=== PATIENT | female | born 1990 | race Caucasian/White ===

== ENCOUNTER 2017-06-07 16:07 | Outpatient (CLI) | payer MEDICAID ==
[2017-06-07 12:48] LABS: BASOPHILS % (AUTO) 0.3 %; EOSINOPHILS # (AUTO) 0.1 10^3/uL (0.0-0.7); EOSINOPHILS % (AUTO) 0.9 %; HGB - HEMOGLOBIN 13.5 g/dL (12.0-16.0); LYMPHOCYTES # (AUTO) 2.7 10^3/uL (1.5-3.5); LYMPHOCYTES % (AUTO) 27.2 %; MEAN CORPUSCULAR HEMOGLOBIN 30.1 pg (27.0-31.0); MEAN CORPUSCULAR HGB CONC 34.7 g/dL (32.0-36.0); MEAN CORPUSCULAR VOLUME 86.8 fL (81.0-99.0); MEAN PLATELET VOLUME 9.1 fL (7.9-10.8); MONOCYTES # (AUTO) 0.6 10^3/uL (0.0-1.0); MONOCYTES % (AUTO) 5.9 %; NEUTROPHILS # (AUTO) 6.5 10^3/uL (1.5-6.6); NEUTROPHILS % (AUTO) 65.7 %; NUCLEATED RED BLOOD CELLS AUTO 0.1 /100WBC; RED CELL DISTRIBUTION WIDTH 12.4 % (12.0-15.0)
[2017-06-07 12:49] LABS: GLUCOSE,FASTING 143 mg/dL (70-100)
[2017-06-07 12:51] LABS: BILIRUBIN,URINE NEGATIVE (NEGATIVE)
[2017-06-07 12:52] LABS: UA w/ MICROSCOPIC CHARGE YES
[2017-06-07 12:54] LABS: WBC,URINE 0-3 /HPF (0-5)
[2017-06-07 13:13] LABS: HEMOGLOBIN A1C 0.46 g/dL
[2017-06-08 10:07] LABS: TEST RESULT REPORT
== END 2017-06-07 16:08 | disposition home or self-care (01) ==
LOC: LAB.WCP 16:07
PROVIDERS: ATTEND Obstetrics & Gynecology
DX: Z36.9 Encounter for antenatal screening, unspecified (principal)
CPT/HCPCS: 36415; 81001; 81003; 81599; 82947; 82950; 83036; 85025; 86592; 86762; 86850; 86900; 86901; 87340; 87389

== ENCOUNTER 2017-06-22 08:11 | Outpatient (CLI) | payer MEDICAID ==
[2017-06-22 09:00] LABS: GTT GLUCOSE,FASTING 95 mg/dL (70-100)
== END 2017-06-22 08:12 | disposition home or self-care (01) ==
LOC: LAB 08:11
PROVIDERS: ATTEND Obstetrics & Gynecology
DX: O99.810 Abnormal glucose complicating pregnancy (principal)
CPT/HCPCS: 36415; 82951

== ENCOUNTER 2017-08-07 19:25 | Inpatient (IN) | payer MEDICAID ==
[2017-08-07] MEDS ORDERED: HYDROmorphone 1 MG/ML SYRINGE IVP STA ×2 (19:39→22:07)
--- NOTE | 2017-08-07 19:41 | ED Physician Documentation ---
PD HPI ABD PAIN - Stated complaint Stated Complaint: STOMACH PAIN/19 WEEKS PREG - Chief complaint Chief Complaint: Abd Pain - History obtained from History obtained from: Patient, Family - History of Present Illness Timing - onset: Other ( with prior vaginal delivery and no problem with prior and no problem with this presents with sudden onset pelvic pain starting 2 hours ago radiating around both sides associated with no vaginal bleeding, discharge, or fluid loss.) Review of Systems Ten Systems: 10 systems reviewed and negative Constitutional: denies: Fever, Chills Ears: denies: Loss of hearing, Drainage/discharge Cardiac: denies: Chest pain / pressure, Palpitations Respiratory: denies: Dyspnea, Cough PD PAST MEDICAL HISTORY - Past Medical History Past Medical History: Yes Neuro: Headache/migraine - Past Surgical History Past Surgical History: No - Present Medications Home Medications: Ambulatory Orders Medication Instructions Recorded Confirmed Vit No.78/Iron/FA 1 tab PO DAILY 12/30/13 08/07/17 [Prenatabs FA Tablet] - Allergies Allergies/Adverse Reactions: Allergies Allergy/AdvReac Type Severity Reaction Status Date / Time azithromycin Allergy Rash Verified 08/07/17 19:31 divalproex sodium AdvReac Headache Verified 08/07/17 19:31 [From Depakote] sumatriptan [From Imitrex] AdvReac Hives Verified 08/07/17 19:31 sumatriptan succinate * AdvReac Hives Verified 08/07/17 19:31 [From Imitrex] - Social History Does the pt smoke?: No Smoking Status: Never smoker Does the pt drink ETOH?: No Does the pt have substance abuse?: No - Family History Family history: reports: Non contributory - Immunizations Immunizations are current?: Yes - POLST Patient has POLST: No PD ED PE NORMAL - Vitals Vital signs reviewed: Yes - General General: Alert and oriented X 3, Other (She appears to be in pain) - HEENT HEENT: PERRL, EOMI - Neck Neck: Supple, no meningeal sign, No bony TTP - Cardiac Cardiac: RRR, No murmur - Respiratory Respiratory: No respiratory distress, Clear bilaterally - Abdomen Abdomen: Other (Soft but diffusely and significantly tender especially in the low abdomen which does not lateralize. Bedside ultrasound shows single live intrauterine with normal motion,) - Back Back: No CVA TTP, No spinal TTP - Derm Derm: Normal color, Warm and dry - Extremities Extremities: No edema, No calf tenderness / cord - Neuro Neuro: Alert and oriented X 3, Normal speech - Psych Psych: Normal mood, Normal affect Results - Vitals Vitals: Vital Signs - 24 hr 08/07/17 08/07/17 19:29 20:51 Temperature 37.1 C Heart Rate 106 H 87 Respiratory 22 18 Rate Blood Pressure 124/85 H 134/67 H O2 Saturation 100 98 Oxygen O2 Source Room air - Labs Labs: Laboratory Tests 08/07/17 08/07/17 08/07/17 19:45 19:45 20:45 WBC 11.7 H RBC 4.29 Hgb 13.0 Hct 37.2 MCV 86.9 MCH 30.2 MCHC 34.8 RDW 12.5 Plt Count 286 MPV 8.8 Neut # 8.3 H Lymph # 2.7 [place] # 0.5 Eos # 0.1 Baso # 0.0 Absolute Nucleated RBC 0.00 Nucleated RBC % 0.0 Sodium 135 Potassium 3.3 L Chloride 100 L Carbon Dioxide 21 Anion Gap 14.0 H BUN 7 Creatinine 0.4 Estimated GFR (MDRD) 191 Glucose 96 Calcium 9.2 Total Bilirubin 0.2 AST 20 ALT 16 Alkaline Phosphatase 63 Total Protein 7.7 Albumin 3.7 Globulin 4.0 Albumin/Globulin Ratio 0.9 L Lipase 19 L Urine Color YELLOW Urine Clarity CLEAR Urine pH 6.0 Ur Specific [place] >=1.030 H Urine Protein NEGATIVE Urine Glucose (UA) NEGATIVE Urine Ketones >=80 H Urine Occult Blood TRACE-INTA Urine Nitrite NEGATIVE Urine Bilirubin NEGATIVE Urine Urobilinogen 1 (NORMAL) Ur Leukocyte Esterase SMALL H Urine RBC 0-5 Urine WBC 4-5 Ur Squamous Epith Cells MOD Squamous H Urine Bacteria Moderate H Ur Microscopic Review INDICATED Urine Culture Comments NOT INDICATED PD MEDICAL DECISION MAKING - ED course ED course: 26-year-old woman with sudden and severe pelvic pain With tenderness. After my initial evaluation I consulted the on-call OB, Dr. Castanon who will be in to see the patient and requests formal ultrasound and labs in the interim. On repeat examination after narcotic pain medication she was much less tender but the tenderness had localized to the right lower quadrant. Ultrasound results as shown, concern for appendicitis and Dr. Castanon's plan was to place her in observation on antibiotics for MRI in the morning. Case discussed by phone with Dr. Sukumar Corado who had reservations given that his understanding because of recent cases that we do not do surgery on women at this facility, he asked me to call administration and I left a message for Claudette Yarbrough to call me back. She did not answer the phone. Regardless, at this juncture there is no clear surgical emergency, that is to be decided based on subsequent testing. Departure - Departure Disposition: ED Place in Observation Clinical Impression: Abdominal pain Qualifiers: Abdominal location: right lower quadrant Qualified Code(s): R10.31 - Right lower quadrant pain Qualifiers: Weeks of gestation: 19 weeks Qualified Code(s): Z3A.19 - 19 weeks gestation of Condition: Stable
[2017-08-07 19:54] LABS: BASOPHILS % (AUTO) 0.4 %; EOSINOPHILS # (AUTO) 0.1 10^3/uL (0.0-0.7); EOSINOPHILS % (AUTO) 1.1 %; LYMPHOCYTES # (AUTO) 2.7 10^3/uL (1.5-3.5); LYMPHOCYTES % (AUTO) 23.4 %; MEAN CORPUSCULAR HEMOGLOBIN 30.2 pg (27.0-31.0); MEAN CORPUSCULAR HGB CONC 34.8 g/dL (32.0-36.0); MEAN CORPUSCULAR VOLUME 86.9 fL (81.0-99.0); MEAN PLATELET VOLUME 8.8 fL (7.9-10.8); MONOCYTES # (AUTO) 0.5 10^3/uL (0.0-1.0); MONOCYTES % (AUTO) 3.9 %; NEUTROPHILS # (AUTO) 8.3 10^3/uL (1.5-6.6); NEUTROPHILS % (AUTO) 71.2 %; PLT - PLATELET COUNT 286 10^3/uL (130-450); RED BLOOD COUNT 4.29 10^6/uL (4.20-5.40); RED CELL DISTRIBUTION WIDTH 12.5 % (12.0-15.0); WHITE BLOOD COUNT 11.7 x10^3/uL (4.8-10.8)
[2017-08-07 20:06] LABS: ALBUMIN 3.7 g/dL (3.2-5.5); ALBUMIN/GLOBULIN RATIO 0.9 (1.0-2.2); BILIRUBIN,TOTAL 0.2 mg/dL (0.2-1.0); CALCIUM 9.2 mg/dL (8.5-10.3); CREATININE 0.4 mg/dL (0.4-1.0); TOTAL PROTEIN 7.7 g/dL (6.7-8.2)
[2017-08-07 20:54] LABS: BILIRUBIN,URINE NEGATIVE (NEGATIVE); CLARITY,URINE CLEAR (CLEAR); GLUCOSE, URINE (UA) NEGATIVE (NEGATIVE); KETONES,URINE (UA) >=80 mg/dL (NEGATIVE); LEUKOCYTE ESTERASE, URINE SMALL (NEGATIVE); NITRITE,URINE NEGATIVE (NEGATIVE); OCCULT BLOOD,URINE TRACE-INTA (NEGATIVE); PROTEIN,URINE NEGATIVE (NEGATIVE); UROBILINOGEN,URINE 1 (NORMAL) E.U./dL (NORMAL)
--- NOTE | 2017-08-07 21:04 | Ultrasound Preliminary Report ---
Exam: US OB LIMITED IMPRESSION: 1. Single living intrauterine gestation in variable presentation with an estimated gestational age of 19 weeks, 4 days based on stated dating. 2. Posterior fundal placenta. No sonographic evidence of placental abruption. 3. Normal ovaries with a right ovarian 1.2 cm cyst. Adjacent to the right ovary is a 1.5 x 1.27 m hyp oechoic region which appears to be separate from the right ovary. Etiology is uncertain. 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 Consider short-term follow-up ultraso und for reassessment. 4. Normal sonographic appearance of the left ovary. 5. Normal JUAN C, 16.5 cm. [facility] SITE ID: [id number]
[2017-08-07 21:05] LABS: BACTERIA,URINE Moderate /HPF (None Seen); RBC,URINE 0-5 /HPF (0-5); SQUAMOUS EPITHELIAL CELL,UR MOD Squamous (<= Few)
--- NOTE | 2017-08-07 21:12 | Ultrasound Report ---
EXAM: LIMITED OB ULTRASOUND EXAM DATE: 08/07/2017 08:51 PM. CLINICAL HISTORY: Sudden pelvic pain, more so midline and to the left. 19 weeks. Evaluate for placent a abruption. LMP 03/23/2017 which corresponds with a gestational age of 19 weeks, 4 days, KAVITHA 12/28/2017. COMPARISON: None. TECHNIQUE: Real time imaging and static images were submitted for interpretation. Transabdominal scan nichole was performed. FINDINGS: Intrauterine gestation is identified in variable presentation. anatomic assessment was not perf ormed on today's study. heart rate measures 131 bpm. Placenta is posterior and fundal and well-visualized. No evidence for placental abruption sonographic ally. movement noted. Amniotic fluid index normal, 16.5 cm. The right ovary measures 2.4 x 1.8 cm. Within the right ovary is a 1.2 x 1.1 cm cyst. Adjacent to the right ovary and slightly more cephalad is a 1.5 x 1.2 cm hypoechoic structure of uncertain significa nce. The patient is tender only on compression although does not note tenderness in this location oth erwise. Left ovary measures 1.9 x 1.2 cm. The patient is tender more towards the left ovary. IMPRESSION: 1. Single living intrauterine gestation in variable presentation with an estimated gestational age of 19 weeks, 4 days based on stated dating. 2. Posterior fundal placenta. No sonographic evidence of placental abruption. 3. Normal ovaries with a right ovarian 1.2 cm cyst. Adjacent to the right ovary is a 1.5 x 1.2 cm hyp oechoic region which appears to be separate from the right ovary. Etiology is uncertain. 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 Consider short-term follow-up ultraso und for reassessment. 4. Normal sonographic appearance of the left ovary. 5. Normal JUAN C, 16.5 cm. [facility] Referring Provider Line: [phone] SITE ID: [id number]
[2017-08-07] MEDS ORDERED: AMPICILLIN/SULBACTAM 3 GM in SODIUM CHLORIDE 0.9% MINIBAG 100 ML IV STA (21:19)
[2017-08-07] MEDS ORDERED: ACETAMINOPHEN 325 MG TABLET PO PRN (22:05)
[2017-08-07] MEDS ORDERED: ZOLPIDEM 5 MG TABLET PO PRN (22:05)
[2017-08-07] MEDS: LACTATED RINGERS 1,000 ML IV SCH (23:44)
[2017-08-07] MEDS: HYDROcod/ACETAM 5/325 MG TABLET PO PRN (23:59)
[2017-08-08] MEDS: SODIUM CHLORIDE FLUSH 0.9% 10 ML SYRINGE IVP PRN (00:01)
[2017-08-08 00:15] LABS: BILIRUBIN,URINE NEGATIVE (NEGATIVE); GLUCOSE, URINE (UA) NEGATIVE (NEGATIVE); KETONES,URINE (UA) >=80 mg/dL (NEGATIVE); LEUKOCYTE ESTERASE, URINE NEGATIVE (NEGATIVE); NITRITE,URINE NEGATIVE (NEGATIVE); OCCULT BLOOD,URINE NEGATIVE (NEGATIVE); PROTEIN,URINE NEGATIVE (NEGATIVE); UROBILINOGEN,URINE 0.2 (NORMAL) E.U./dL (NORMAL)
[2017-08-08 00:17] LABS: CLARITY,URINE CLEAR (CLEAR)
[2017-08-08] MEDS: AMPICILLIN/SULBACTAM 1.5 GM in SODIUM CHLORIDE 0.9% MINIBAG 100 ML IV SCH ×4 (04:09→22:27)
[2017-08-08] MEDS: HYDROcod/ACETAM 5/325 MG TABLET PO PRN ×2 (04:53→17:14)
[2017-08-08] MEDS: SODIUM CHLORIDE FLUSH 0.9% 10 ML SYRINGE IVP SCH ×3 (04:56→17:14)
[2017-08-08 06:24] LABS: BASOPHILS % (AUTO) 0.4 %; EOSINOPHILS # (AUTO) 0.1 10^3/uL (0.0-0.7); EOSINOPHILS % (AUTO) 0.9 %; HGB - HEMOGLOBIN 11.5 g/dL (12.0-16.0); LYMPHOCYTES # (AUTO) 2.7 10^3/uL (1.5-3.5); MEAN CORPUSCULAR HEMOGLOBIN 29.8 pg (27.0-31.0); MEAN CORPUSCULAR HGB CONC 34.4 g/dL (32.0-36.0); MEAN CORPUSCULAR VOLUME 86.4 fL (81.0-99.0); MEAN PLATELET VOLUME 8.2 fL (7.9-10.8); MONOCYTES # (AUTO) 0.4 10^3/uL (0.0-1.0); MONOCYTES % (AUTO) 4.4 %; NEUTROPHILS # (AUTO) 6.9 10^3/uL (1.5-6.6); NEUTROPHILS % (AUTO) 67.3 %; PLT - PLATELET COUNT 245 10^3/uL (130-450); RED BLOOD COUNT 3.86 10^6/uL (4.20-5.40); RED CELL DISTRIBUTION WIDTH 12.4 % (12.0-15.0); WHITE BLOOD COUNT 10.2 x10^3/uL (4.8-10.8)
[2017-08-08 06:34] LABS: ALBUMIN 2.8 g/dL (3.2-5.5); ALBUMIN/GLOBULIN RATIO 0.9 (1.0-2.2); BILIRUBIN,TOTAL 0.2 mg/dL (0.2-1.0); CALCIUM 8.6 mg/dL (8.5-10.3); CREATININE 0.4 mg/dL (0.4-1.0)
--- NOTE | 2017-08-08 08:50 | HISTORY & PHYSICAL EXAMINATION ---
DATE OF SERVICE: Physician: John Castanon MD OBSERVATION/ADMIT NOTE DATE OF ADMISSION: 08/07/2017 DIAGNOSES 1. Lower quadrant abdominal pain in : right-sided greater than left. 2. A 19 week, 4 day gestation. HISTORY OF PRESENT ILLNESS: This patient is a 26-year-old , 2 , para 1-0-0-1 woman at 19 weeks 4 days gestation who reports a rapid onset of bilateral lower quadrant pain at 1730 this evening. The pain radiated to the lumbar region and hips. The pain occurred while she was eating a cheeseburger. She complains of no nausea, vomiting, fevers or chills. She has no UTI symptoms or hematuria. She has no history of abdominal surgery or gynecologic surgery. She had a bowel movement at roughly 7 p.m. It started out mild and became fairly strong, described as 9/10 ache. She reports no uterine contractions, vaginal bleeding or foul pelvic discharge. Her pain responded to narcotic medication given in the ED. As time progesses the pain is localizing to the right side. Ultrasound is essentially normal for a 19 week gestation with active fetus. Close inspection of the placenta finds no abruption. There is flow in both ovaries. However, next to the right ovary, there is a hypoechoic nodule. Earlier in , office notes they show an increased appetite and an abnormal fasting glucose at 143 and GCT of 143. Hemoglobin A1c is 5.0. Three hour glucose tolerance test was done, which was normal. She was advised to change her diet to include more fruits and vegetables. She had a sedentary lifestyle up to that point. PAST MEDICAL HISTORY: Patient reports no chronic disease history. First gestation was delivered at 40 weeks, that would be general, yielding a healthy male . History of migrainous headaches. History of depression, not requiring SSRIs PAST SURGICAL HISTORY: [place] tooth extraction. MEDICATIONS 1. vitamins w Iron REVIEW OF SYSTEMS CONSTITUTIONAL: Negative. HEENT: The patient currently has a headache, but states that it is not a migrainous one. CARDIOVASCULAR: Negative. RESPIRATORY: Negative. GASTROINTESTINAL: Negative, reference HPI. GENITOURINARY: Negative. MUSCULOSKELETAL: Negative. SKIN: Negative. BREASTS: Changes associated with . NEUROLOGIC: Negative. PSYCHOLOGIC: History of depression and anxiety. FAMILY HISTORY: No inheritable diseases or chromosomal anomalies. SOCIAL HISTORY: Single, a 3-year-old toddler at home. Nonsmoker, no drug or alcohol use. Consumes coffee, approximately 1-3 cups a day. Occupation: Works at [employer]. High school diploma. PHYSICAL EXAMINATION GENERAL: Well groomed, increased in anxiety. VITAL SIGNS: Reviewed, afebrile. HEENT: Neck supple. Nonicteric sclerae. Dentition in good repair. LUNGS: Clear to auscultation. CARDIAC: Regular. No significant murmur. ABDOMEN: Nondistended. No organomegaly. Uterus appropriate size at the umbilicus. Mild RLQ tenderness elicited. PELVIC: Exam deferred. EXTREMITIES: No pedal edema. No calf tenderness. No Homans sign. NEUROLOGIC: Grossly intact. LABORATORY DATA: White count 11.7, hemoglobin 13.0, sodium 135, potassium 3.3, glucose 96, lipase 19. Liver enzymes not elevated. Clean catch urine ketones 80, leukoesterase small, bacteria noted. Ultrasound preliminary report a single, living fetus at 19 weeks 4 days, posterior placenta, no sonographic evidence of abruption. Ovaries normal, but right ovary has a 1.2 cm cyst adjacent, hypoechoic region 1.5 x 1.27. It seems separate from the right ovary. JUAN C normal at 16.5. ASSESSMENT: Mss. Liu is a 19-week, 4 day gestation who experienced a rapid onset of abdominal pain after a meal that localized to RLQ with time. There are no signs of infection and a white count of 11.7, may be normal for . Etiology of pain is not clear and the significance of the right shona -adnexal mass is uncertain. The pain does not seem to be obstetric in origin. GI causes include small bowel torsion, introsusception, mesangial lymphadenitis and early appendicitis. More time will be needed to determine if she requires intervention. Currently the is previable and in in the 2nd trimester -- both factors that should not impede surgery if it determined prudent. PLAN 1. Admit for observation. 2. Serial white count. 3. Consult with surgery, Dr Corado. 4. Possible MRI or repeat ultrasound in the morning. Addendum: Discussed case with Dr. Melo (emergency Department) and Unasyn continued. Discussed Dr. Corado and he is concerned about the (1400) long delay in obtaining MRI and asks permission for CT scan. I am working w Dr Zamora to move the MRI up. Dr. Corado is concerned about arranging transfer of surgical if it becomes necessary. Search Manager coming onto call, Dr. Guerrero, informed this morning of patient admission. TD: 08/08/2017 09:47 MTDD
[2017-08-08] MEDS: LACTATED RINGERS 1,000 ML IV SCH (09:53)
[2017-08-08] MEDS: POLYETHYLENE GLYCOL 3350 17 GM PACKET PO SCH (09:55)
--- NOTE | 2017-08-08 10:50 | PROVIDER PROGRESS NOTE ---
Subjective - General Admit Date: 08/07/17 Objective - Patient Data Vital Signs: Vital Signs x48h Temp Pulse Resp BP Pulse Ox 08/08/17 08:22 37.0 C 93 16 122/52 L 95 08/08/17 04:50 36.9 C 84 16 118/58 L 97 Weight: Weight 08/06/17 08/07/17 08/08/17 23:59 23:59 23:59 Weight (kg) 93.894 kg Intake & Output: Intake and Output Totals x24h 08/06/17 08/07/17 08/08/17 23:59 23:59 23:59 Intake Total 100 1165.000 Output Total 800 Balance 100 365.000 - Lab Results Lab Results: 08/08/17 06:15 08/08/17 06:15 Other Lab Results: Lab Results x24hrs 08/08/17 08/08/17 08/07/17 Range/Units 06:15 06:15 23:25 WBC 10.2 (4.8-10.8) x10^3/uL RBC 3.86 L (4.20-5.40) 10^6/uL Hgb 11.5 L (12.0-16.0) g/dL Hct 33.3 L (37.0-47.0) % MCV 86.4 (81.0-99.0) fL MCH 29.8 (27.0-31.0) pg MCHC 34.4 (32.0-36.0) g/dL RDW 12.4 (12.0-15.0) % Plt Count 245 (130-450) 10^3/uL MPV 8.2 (7.9-10.8) fL Neut # 6.9 H (1.5-6.6) 10^3/uL Lymph # 2.7 (1.5-3.5) 10^3/uL [place] # 0.4 (0.0-1.0) 10^3/uL Eos # 0.1 (0.0-0.7) 10^3/uL Baso # 0.0 (0.0-0.1) 10^3/uL Absolute Nucleated RBC 0.00 x10^3/uL Nucleated RBC % 0.0 /100WBC Sodium 134 L (135-145) mmol/L Potassium 3.2 L (3.5-5.0) mmol/L Chloride 103 (101-111) mmol/L Carbon Dioxide 20 L (21-32) mmol/L Anion Gap 11.0 (6-13) BUN 5 L (6-20) mg/dL Creatinine 0.4 (0.4-1.0) mg/dL Estimated GFR (MDRD) 191 (>89) Glucose 86 (70-100) mg/dL Calcium 8.6 (8.5-10.3) mg/dL Total Bilirubin 0.2 (0.2-1.0) mg/dL AST 15 (10-42) IU/L ALT 14 (10-60) IU/L Alkaline Phosphatase 51 (42-121) IU/L Total Protein 6.0 L (6.7-8.2) g/dL Albumin 2.8 L (3.2-5.5) g/dL Globulin 3.2 (2.1-4.2) g/dL Albumin/Globulin Ratio 0.9 L (1.0-2.2) Urine Color YELLOW Urine Clarity CLEAR (CLEAR) Urine pH 7.0 (5.0-7.5) PH Ur Specific [place] 1.025 (1.002-1.030) Urine Protein NEGATIVE (NEGATIVE) mg/dL Urine Glucose (UA) NEGATIVE (NEGATIVE) mg/dL Urine Ketones >=80 H (NEGATIVE) mg/dL Urine Occult Blood NEGATIVE (NEGATIVE) Urine Nitrite NEGATIVE (NEGATIVE) Urine Bilirubin NEGATIVE (NEGATIVE) Urine Urobilinogen 0.2 (NORMAL) (NORMAL) E.U./dL Ur Leukocyte Esterase NEGATIVE (NEGATIVE) Ur Microscopic Review NOT INDICATED Urine Culture Comments NOT INDICATED - Current Medications Current Medications: Current Medications Generic Name Dose Route Start Last Admin Trade Name Freq PRN Reason Stop Dose Admin Acetaminophen/Hydrocodone Bitart 1 tab 08/07/17 22:05 08/08/17 04:53 [place] 5/325 PO 1 tab Q4HR PRN Administration Pain 5 to 7 Lactated Ringer's 1,000 mls @ 100 mls/hr 08/07/17 23:00 08/08/17 09:53 Lr IV 100 mls/hr .Q10H MEKHI Administration Ampicillin Sodium/Sulbactam 100 mls @ 200 mls/hr 08/08/17 04:00 08/08/17 10: 09 Sodium 1.5 gm/ Sodium Chloride IV 200 mls/hr Q6H MEKHI Administration Polyethylene Glycol 17 gm 08/08/17 09:00 08/08/17 09:55 Miralax PO Not Given DAILY MEKHI Sodium Chloride 10 ml 08/07/17 22:05 08/08/17 00:01 Normal Saline Flush 0.9% IVP 10 ml PRN PRN Administration NEEDED PER PROVIDER ORDERS Sodium Chloride 10 ml 08/08/17 06:00 08/08/17 04:56 Normal Saline Flush 0.9% IVP Not Given Q8HR MEKHI - Physical Exam Abdomen: positive: Other (tenderness in the rlq without peritoneal signs at this time.) Impression/Plan - Problem List Problem List: I had examined the patient earlier this am. She is tender in the rlq concerning for appendicitis although not diagnostic. WBC slightly decreased at 11 but was on antibiotics which muddys the diagnosis. Imaging is extremely helpful in making the diagnosis. U/s was nondiagnostic so MRI was ordered. Mri not available till this afternoon. Having a diagnosis as soon as possible to reduce perioperative complications is needed and so I would recommend that she undergo a ct scan of her abdomen/pelvis. With this , there is a increased risk of childhood cancer. However, not having a diagnosis as soon as possible is a worse scenario. Discussed this with Dr Castanon.
--- NOTE | 2017-08-08 12:35 | PROVIDER PROGRESS NOTE ---
Subjective - Prog Note Date Prog Note Date: 08/08/17 Prog Note Time: 12:27 - Subjective Pt reports feeling: No change Subjective: director call OB, rounded on the patient. Patient in bed, miserable. NPO x 18 hours and getting more nauseated because of being NPO. MRI scheduled for this PM; patient bumped until 2 PM. Pain currently at a 5/10. Objective - Vital Signs/Intake & Output Vital Signs: Vital Signs x48h Temp Pulse Resp BP Pulse Ox 08/08/17 12:13 98.8 F 90 16 122/55 L 95 08/08/17 08:22 98.6 F 93 16 122/52 L 95 08/08/17 04:50 98.4 F 84 16 118/58 L 97 Intake & Output: Intake & Output 08/05/17 08/06/17 08/07/17 08/08/17 23:59 23:59 23:59 23:59 Intake Total 100 1265.000 Output Total 800 Balance 100 465.000 - Lab Results Fish Bones: 08/08/17 06:15 08/08/17 06:15 Other Labs: Lab Results x24hrs 08/08/17 08/08/17 08/07/17 Range/Units 06:15 06:15 23:25 WBC 10.2 (4.8-10.8) x10^3/uL RBC 3.86 L (4.20-5.40) 10^6/uL Hgb 11.5 L (12.0-16.0) g/dL Hct 33.3 L (37.0-47.0) % MCV 86.4 (81.0-99.0) fL MCH 29.8 (27.0-31.0) pg MCHC 34.4 (32.0-36.0) g/dL RDW 12.4 (12.0-15.0) % Plt Count 245 (130-450) 10^3/uL MPV 8.2 (7.9-10.8) fL Neut # 6.9 H (1.5-6.6) 10^3/uL Lymph # 2.7 (1.5-3.5) 10^3/uL [place] # 0.4 (0.0-1.0) 10^3/uL Eos # 0.1 (0.0-0.7) 10^3/uL Baso # 0.0 (0.0-0.1) 10^3/uL Absolute Nucleated RBC 0.00 x10^3/uL Nucleated RBC % 0.0 /100WBC Sodium 134 L (135-145) mmol/L Potassium 3.2 L (3.5-5.0) mmol/L Chloride 103 (101-111) mmol/L Carbon Dioxide 20 L (21-32) mmol/L Anion Gap 11.0 (6-13) BUN 5 L (6-20) mg/dL Creatinine 0.4 (0.4-1.0) mg/dL Estimated GFR (MDRD) 191 (>89) Glucose 86 (70-100) mg/dL Calcium 8.6 (8.5-10.3) mg/dL Total Bilirubin 0.2 (0.2-1.0) mg/dL AST 15 (10-42) IU/L ALT 14 (10-60) IU/L Alkaline Phosphatase 51 (42-121) IU/L Total Protein 6.0 L (6.7-8.2) g/dL Albumin 2.8 L (3.2-5.5) g/dL Globulin 3.2 (2.1-4.2) g/dL Albumin/Globulin Ratio 0.9 L (1.0-2.2) Urine Color YELLOW Urine Clarity CLEAR (CLEAR) Urine pH 7.0 (5.0-7.5) PH Ur Specific [place] 1.025 (1.002-1.030) Urine Protein NEGATIVE (NEGATIVE) mg/dL Urine Glucose (UA) NEGATIVE (NEGATIVE) mg/dL Urine Ketones >=80 H (NEGATIVE) mg/dL Urine Occult Blood NEGATIVE (NEGATIVE) Urine Nitrite NEGATIVE (NEGATIVE) Urine Bilirubin NEGATIVE (NEGATIVE) Urine Urobilinogen 0.2 (NORMAL) (NORMAL) E.U./dL Ur Leukocyte Esterase NEGATIVE (NEGATIVE) Ur Microscopic Review NOT INDICATED Urine Culture Comments NOT INDICATED Assessment/Plan - Problem List (1) Abdominal pain Impression: 26 yo with a 19w5d IUP. RLQ pain, awaiting MRI this PM. status reassuring. If appendicitis suspected, anticipate appendectomy by Dr. Corado. Fetus previable and in 2nd trimester. (See ACOG Committee Opinion Number 696, October 2016, Nonobstetric Surgery During .) If antibiotics necessary after surgery, recommend PCN derivatives and cephalosporins. (Do not recommend tetracycline or amnioglycosides.) heart tones before and after surgery. Patient to follow up with [facility] this week regardless of outcome. Patient is O positive, RhoGam not warranted. Appreciate Dr. Sukumar Corado's help. Qualifiers: Abdominal location: right lower quadrant Qualified Code(s): R10.31 - Right lower quadrant pain
[2017-08-08] MEDS ORDERED: ALPRAZolam 0.25 MG TABLET PO SCH (13:54)
[2017-08-08] MEDS ORDERED: LORazepam 2 MG/ML VIAL IVP SCH (15:20)
[2017-08-08] MEDS ORDERED: HYDROmorphone 1 MG/ML SYRINGE IVP PRN ×3 (17:28→21:11)
--- NOTE | 2017-08-08 18:06 | MRI Report ---
EXAM: MR ABDOMEN AND PELVIS WITHOUT CONTRAST EXAM DATE: 08/08/2017 04:01 PM CLINICAL HISTORY: Right lower quadrant pain COMPARISON: None. TECHNIQUE: Multiplanar T1 and T2-weighted sequences obtained through the abdomen and pelvis without c ontrast. FINDINGS: The liver demonstrates areas of decreased signal on opposed phase sequences consistent with fatty infiltration. The visualized Gallbladder, pancreas, spleen and adrenal glands are unremarkable . There is mild right renal pelviectasis which is likely related. The kidneys are otherwise normal. The appendix measures 7-8 mm in diameter at its tip. There is slight appendiceal thickening with flui d within the appendiceal lumen and slightly decreased signal in the periappendiceal fat on T2-weighte d sequences. No associated fluid collections. There is no bowel obstruction. No mesenteric lymphadeno callie or fluid collections. Both ovaries demonstrate normal size and morphology. Please note that exam not performed for an d placental assessment. IMPRESSION: 1. Appendiceal findings as above suggesting early acute appendicitis. 2. Fatty liver. [facility] The call report notification system was initiated by Dr. Jose M Summers at 17:55 hrs on 08/08/17. The above findings were discussed with Dr. Mak Dr by Dr. Jose M Summers at 18:05 hrs on 07/25 12/09. Referring Provider Line: [phone] SITE ID: [id number]
[2017-08-08] MEDS: POTASSIUM CHLOR 10 MEQ/100 ML 10 MEQ/100 ML BAG IV SCH ×2 (18:18→22:28)
[2017-08-08] MEDS ORDERED: BUPIVACAINE 0.25% PF 30 ML VIAL SUBQ ONE ×2 (19:09→20:54)
[2017-08-08] MEDS ORDERED: LACTATED RINGERS 1,000 ML IV ONE ×3 (20:42→21:54)
[2017-08-08] MEDS ORDERED: ONDANSETRON 4 MG/2 ML VIAL IVP PRN (21:12)
[2017-08-08] MEDS ORDERED: NEOSTIGMINE 1 MG/1 ML 10 ML MDV IVP ONE (21:21)
[2017-08-08] MEDS ORDERED: ONDANSETRON 4 MG/2 ML VIAL IVP ONE (21:21)
[2017-08-08] MEDS ORDERED: GLYCOPYRROLATE 1 MG/5 ML VIAL IVP ONE (21:21)
[2017-08-08] MEDS ORDERED: fentaNYL 100 MCG/2 ML VIAL IVP ONE (21:21)
[2017-08-08] MEDS ORDERED: PROPOFOL 200 MG/20 ML VIAL IVP ONE (21:21)
[2017-08-08] MEDS ORDERED: ROCURONIUM 50 MG/5 ML VIAL IVP ONE (21:21)
[2017-08-08] MEDS: fentaNYL 100 MCG/2 ML VIAL ONE ×3 (21:34→22:04)
[2017-08-08] MEDS ORDERED: ONDANSETRON 4 MG/2 ML VIAL ONE (21:37)
[2017-08-09] MEDS: SODIUM CHLORIDE FLUSH 0.9% 10 ML SYRINGE IVP PRN (00:08)
[2017-08-09] MEDS: AMPICILLIN/SULBACTAM 1.5 GM in SODIUM CHLORIDE 0.9% MINIBAG 100 ML IV SCH ×2 (03:14→10:47)
[2017-08-09] MEDS: LACTATED RINGERS 1,000 ML IV SCH ×2 (04:02→07:46)
--- NOTE | 2017-08-09 04:07 | OPERATIVE REPORT ---
DATE OF SERVICE: 08/08/2017 Physician: Sukumar Corado MD PREOPERATIVE DIAGNOSIS: Acute appendicitis. POSTOPERATIVE DIAGNOSIS: Acute appendicitis. OPERATING SURGEON: Sukumar Corado MD ANESTHESIA: General, Dr. Hernandez. PROCEDURE: Laparoscopic appendectomy. INDICATIONS FOR SURGERY: The patient is a 26-year-old female who presents with abdominal pain starting the day prior to surgery. She was admitted to the hospital and had an ultrasound which showed a structure next to the ovary of unknown etiology. The appendix was not seen. She then underwent an MRI of the abdomen and pelvis, which showed a dilated appendix consistent with acute appendicitis. FINDINGS AT SURGERY: The patient had acutely inflamed appendix that was nonruptured. The patient had a gravid uterus. PROCEDURE: After informed consent was obtained, the patient was taken to the operating room, placed in supine position. General endotracheal anesthesia was then administered. The patient's abdomen was then prepped and draped in usual sterile fashion. Prior to making an abdominal incision, the skin was injected with local anesthesia. An infraumbilical incision was then made in the skin using a scalpel. This was carried down to the fascial layer using electrocautery. I had attempted using the Optiview trocar to go through the fascia and through the peritoneum; however, the peritoneum was quite loose and I was not able to penetrate it with the trocar. Next, the incision was then converted to a Adriana approach. The fascia had 0 Vicryl sutures placed on either side of the midline. This acted as stay sutures. Midline fascia was then incised along with the peritoneum. The Adriana trocar was then inserted intra-abdominally with the balloon inflated and the abdominal cavity then insufflated. Looking inside no injuries were noted. The 5 mm port was placed in right upper quadrant and a second one in the right lower quadrant under direct vision. The patient's appendix was inflamed, having early appendicitis. The patient did have a cyst on the right fallopian tube, which was the structure seen on the ultrasound. An opening was then made in the mesentery of the appendix at its base. An Endo-ADRIENNE was then placed across the base of the appendix stapling and dividing it. Next, the mesentery of the appendix was then divided using LigaSure cautery device. The patient's appendix was then placed in a bag and removed through the umbilical port. There was no bleeding noted from the surgery site intra-abdominally. The ports were then removed. No bleeding was noted at the port sites with the abdomen then being desufflated. The umbilical fascial defect was then closed using #0 Vicryl suture and skin incisions were closed using 4-0 Monocryl subcuticular stitch. Dermabond was then applied. The patient was then awakened, extubated, and taken from the operating room in stable condition. ESTIMATED BLOOD LOSS: Less than 5 mL COMPLICATIONS: None. CONDITION OF THE PATIENT AFTER THE PROCEDURE: Stable. SPECIMENS: Appendix. DRAINS AND PACKS: None. CLASSIFICATION OF WOUND: Clean/contaminated. TD: 08/09/2017 05:07
[2017-08-09] MEDS: SODIUM CHLORIDE FLUSH 0.9% 10 ML SYRINGE IVP SCH (06:31)
[2017-08-09] MEDS: HYDROcod/ACETAM 5/325 MG TABLET PO PRN (07:33)
[2017-08-09 07:42] VITALS: BP 127/58
[2017-08-09] MEDS: POLYETHYLENE GLYCOL 3350 17 GM PACKET PO SCH (08:35)
--- NOTE | 2017-08-09 10:17 | Discharge Plan ---
Discharge Plan Disposition: 01 Home, Self Care Condition: Stable Prescriptions: HYDROcod/ACETAM 5/325 [Littcarr 5/325] 1 - 2 tab PO Q4HR PRN #30 tablet PRN Reason: Abdominal Pain Diet: Regular Activity Restrictions: No lifting over 15 lbs Shower Restrictions: No Driving Restrictions: Yes Weight Bearing: Full Weight No Smoking: If you smoke, Please STOP! Call for help. Follow-up with: Ani Anand PA-C [Primary Care Provider] - 2 Weeks Sukumar Corado MD [Provider Admit Priv/Credential] - 1 Week Denice Guerrero DO [Provider Admit Priv/Credential] - 2 Weeks John Castanon MD [Provider Admit Priv/Credential] - 2 Weeks (Mistake Dr Guerrero instead of Dr Castanon)
--- NOTE | 2017-08-10 13:09 | PROVIDER PROGRESS NOTE ---
Subjective - General Admit Date: 08/08/17 Procedure Performed: laparoscopic appendectomy - Review of Systems Wound/Incisions: positive: Healing well Gastrointestinal: positive: No symptoms, Other (incisional pain relieved with oral pain medication) Objective - Patient Data Intake & Output: Intake and Output Totals x24h 08/08/17 08/09/17 08/10/17 23:59 23:59 23:59 Intake Total 200 1503.333 Output Total 1225 Balance 200 278.333 - Lab Results Lab Results: 08/08/17 06:15 08/08/17 06:15 - Physical Exam Wound/Incisions: positive: Healing well Impression/Plan - Problem List Problem List: s/p laparoscopic appendectomy pod#1. Doing well tolerating diet with oral pain medication relieving her postsurgical abdominal pain. Pain that was present prior to surgery has resolved. heart tones normal. D/c home.
--- NOTE | 2017-08-10 13:34 | CONSULTATION NOTE ---
DATE OF SERVICE: 08/08/2017 Physician: Sukumar Corado MD DATE OF CONSULTATION: 08/08/2017 REFERRING PHYSICIAN: Dr. Castanon REASON FOR REFERRAL: Abdominal pain. HISTORY OF PRESENT ILLNESS: The patient is a 26-year-old female who is 19 weeks . She had started to have abdominal pain day prior to admission. She had an abdominal ultrasound, which was nondiagnostic. Her white blood cell count was mildly elevated at 12. This is the first time she has had this pain. She denies any nausea, vomiting, diarrhea or constipation. PAST MEDICAL HISTORY: Depression. PAST SURGICAL HISTORY: None. MEDICATIONS: vitamins. ALLERGIES: NONE. HABITS: The patient denies any smoking, alcohol or drug use. FAMILY HISTORY: Noncontributory. SOCIAL HISTORY: The patient is . PHYSICAL EXAMINATION: VITAL SIGNS: Temperature 36.8. Blood pressure 139/72, pulse is 90. GENERAL: Patient is lying in bed. She is in mild distress secondary to abdominal pain. EYES: Nonicteric. NECK: No lymphadenopathy. HEART: Regular. LUNGS: Clear. BACK: Nontender. ABDOMEN: Soft, gravid, moderate tenderness in the right lower quadrant without rebound tenderness. No hernias. GROIN: No hernias. EXTREMITIES: No edema. No cyanosis. NEUROLOGIC: Patient appears to be neurologically intact without any deficit. PSYCHOLOGICAL: The patient is coherent, cooperative, and appears to answer questions fully. DIAGNOSTIC DATA: See history of present illness. ASSESSMENT: Pain in the right lower quadrant, suspicious for acute appendicitis. We are currently awaiting MRI to aid in the diagnosis. PLAN: MRI of the abdomen and pelvis. We will reevaluate the patient once the MRI has been completed. TD: 08/10/2017 14:33
--- NOTE | 2017-08-10 14:07 | DISCHARGE SUMMARY ---
DATE OF SERVICE: Physician: Sukumar Corado MD DATE OF ADMISSION: 08/07/2017 DATE OF DISCHARGE: 08/09/2017 REASON FOR ADMISSION: Abdominal pain. HISTORY OF PRESENT ILLNESS: The patient is a 26-year-old female who presents with right-sided abdominal pain. She is 19 weeks . Because of the pain, she came to the emergency room. She was evaluated in the emergency room, because of continued pain, admitted to the hospital. PRINCIPAL DIAGNOSIS: Acute appendicitis. Other medical problem is 19 weeks' gestational . CONSULTATION: General surgery consultation was obtained. PROCEDURES: The patient underwent a laparoscopic appendectomy on 08/08/2017. HOSPITAL COURSE: The patient was initially seen in the emergency room. She had an abdominal ultrasound, which the appendix was not visualized. She was then admitted to the hospital by Obstretrics and started on IV antibiotics. Her white blood cell count was 12, going down to 11 the next day. A MRI was obtained which showed a mildly dilated appendix, suspicious for acute appendicitis. She was then counseled on surgery, which she decided to proceed with the procedure. She then underwent the above procedure and tolerated it well. Her fetus was monitored pre and post- procedure with sports centre manager following the patient. There were no complications arising during hospitalization with the patient having normal heart tones. She was watched overnight and continued to do well. She was switched from IV to oral pain medication which helped relieve her discomfort. She was started on liquid diet, advanced to regular, which she tolerated at discharge. Her abdominal incisions remained clean, dry and intact without any evidence of infection. She was then discharged home on postoperative day #1 in stable condition. DISCHARGE INSTRUCTIONS: Patient was discharged home. Followup with Dr. Armendariz' s clinic in [address] Corado's clinic in 10-14 days. Ambulate with no heavy lifting. Regular diet. No driving. DISCHARGE MEDICATIONS: 1. Whittaker 5/325, 1-2 p.o. q. 4-6 hours p.r.n. pain. TD: 08/10/2017 15:06 IGOR
--- NOTE | 2017-08-10 14:45 | CONSULTATION NOTE ---
DATE OF SERVICE: 08/08/2017 Physician: Sukumar Corado MD HISTORY OF PRESENT ILLNESS: The patient is a 26-year-old female who presents with lower abdominal pain starting yesterday. This is the first time she has had this pain. She denies any diarrhea or constipation. Mild nausea. Because of the pain, she came to the emergency room to be evaluated. The patient had a pelvic ultrasound which revealed an intrauterine with a small structure next to the right ovary of unknown etiology. Because of this, the patient was admitted to the hospital for further evaluation and testing. Her white blood cell count was 12. PAST SURGICAL HISTORY: None. MEDICAL PROBLEMS: None. HABITS: The patient denies any smoking, alcohol or drug use. MEDICATIONS: vitamins. SOCIAL HISTORY: The patient is . FAMILY HISTORY: Noncontributory. ALLERGIES: 1. ERYTHROMYCIN. 2. DEPAKOTE. 3. IMITREX. REVIEW OF SYSTEMS: Complete review of systems is obtained. Pertinent positives are gastrointestinal, abdominal pain. A 12-point review of systems was obtained with pertinent positives discussed and all others negative. PHYSICAL EXAMINATION: VITAL SIGNS: Temperature is 37.1, pulse 87, respirations 18, blood pressure is 134/67. GENERAL: The patient is lying in bed. She is cooperative and pleasant, appears to answer questions fully. EYES: Nonicteric. NECK: No lymphadenopathy. HEART: Regular. LUNGS: Clear. BACK: Nontender. ABDOMEN: Soft, tender in her right lower quadrant that is concerning for appendicitis. No rebound tenderness. No hernias. Patient is gravid. EXTREMITIES: No edema or cyanosis. NEUROLOGIC: The patient appears to be neurologically intact without any deficit. PSYCHOLOGICAL: The patient is coherent, cooperative, and appears to answer questions fully. ASSESSMENT: 1. Right lower quadrant pain that I am concerned for appendicitis. Ultrasound does show a small cystic structure next to ovary of unknown etiology. The appendix was not seen. Further imaging is warranted at this time. I recommend the patient have an MRI of her abdomen to better assess whether she has a possible appendicitis or not. 2. Intrauterine with obstetricians following the patient. PLAN: 1. N.P.O. 2. IV fluids. 3. MRI of the abdomen and pelvis. TD: 08/08/2017 21:15
== END 2017-08-09 10:58 | disposition home or self-care (01) | DRG 781 ==
LOC: ED 19:25 → OBS 22:05 → OBSVTOIN 08-08 21:11 → MS2 08-08 22:22
PROVIDERS: ADMIT Obstetrics & Gynecology; ATTEND Surgery
PROC: 0DTJ4ZZ Resection of Appendix, Percutaneous Endoscopic Approach (ICD-10-PCS; principal; 2017-08-08 19:30)
DX: O99.612 Diseases of the digestive system complicating pregnancy, second trimester (principal); K35.80 Unspecified acute appendicitis; O34.82 Maternal care for other abnormalities of pelvic organs, second trimester; N83.8 Other noninflammatory disorders of ovary, fallopian tube and broad ligament; Z3A.19 19 weeks gestation of pregnancy; Z86.59 Personal history of other mental and behavioral disorders; Z86.69 Personal history of other diseases of the nervous system and sense organs
CPT/HCPCS: 44970; G0378; 36415; 72195; 74181; 76815; 80053; 81001; 81003; 83690; 85025; 87086; 96361; 96365; 96366; 96375; 96376; 99284; 99285

== ENCOUNTER 2017-08-15 15:33 | Outpatient (CLI) | payer MEDICAID | END 2017-08-15 15:34 | disposition home or self-care (01) | LOC: LAB 15:33 | PROVIDERS: ATTEND Obstetrics & Gynecology | DX: Z36.9 Encounter for antenatal screening, unspecified (principal) | CPT/HCPCS: 36415; 81599; 82105; 82677; 84702; 86336 ==

== ENCOUNTER 2017-08-29 09:31 | Observation (INO) | payer MEDICAID ==
[2017-08-29] MEDS ORDERED: SODIUM CHLORIDE 0.9% 1,000 ML IV ONE (11:19)
--- NOTE | 2017-08-29 11:24 | ED Physician Documentation ---
History of Present Illness - Stated complaint Stated Complaint: SYNCOPE/22 WKS PREG - Chief complaint Chief Complaint: Neuro - Additonal information Additional information: hx from pt 26 y/o f 22 weeks EGA states that since her first 3.5 yr ago she has had a resting HR of about 100 approx 3 weeks ago she was admitted for abd pain, had MRI, had acute appy, had surgery yesterday she slept in, did not eat breakfast, then at lunch, went to get her makeup done and have a photo shoot, smelled the alcohol wipes and felt faint, then had a 10 sec syncopal episode nobody checked a pulse but she was breathing was pale, cyanotic lips sweaty gradually recovered no fall or injury afterward she felt tingling in her chest and ext but that is gone now she does note she has had some SOA and a cough since her recent surgery no leg swelling Review of Systems Constitutional: denies: Fever, Chills Cardiac: reports: Chest pain / pressure. denies: Palpitations Respiratory: reports: Dyspnea, Cough GI: denies: Abdominal Pain : reports: Now EGA Endocrine: denies: Easy bruising / bleeding Immunocompromised: denies: Immunocompromised PD PAST MEDICAL HISTORY - Past Medical History Cardiovascular: None Respiratory: None Neuro: Headache/migraine Endocrine/Autoimmune: None GI: None : None HEENT: None Psych: Depression, Anxiety, Panic attacks Musculoskeletal: Chronic back pain Derm: None - Past Surgical History Past Surgical History: No - Present Medications Home Medications: Ambulatory Orders Medication Instructions Recorded Confirmed Vit No.78/Iron/FA 1 tab PO DAILY 12/30/13 08/29/17 [Prenatabs FA Tablet] - Allergies Allergies/Adverse Reactions: Allergies Allergy/AdvReac Type Severity Reaction Status Date / Time azithromycin Allergy Rash Verified 08/07/17 19:31 divalproex sodium AdvReac Headache Verified 08/07/17 19:31 [From Depakote] sumatriptan [From Imitrex] AdvReac Hives Verified 08/07/17 19:31 sumatriptan succinate * AdvReac Hives Verified 08/07/17 19:31 [From Imitrex] - Social History Does the pt smoke?: No Smoking Status: Never smoker Does the pt drink ETOH?: No Does the pt have substance abuse?: No - Immunizations Immunizations are current?: Yes - POLST Patient has POLST: No PD ED PE NORMAL - Vitals Vital signs reviewed: Yes (tachy) - HEENT HEENT: Atraumatic - Neck Neck: Supple, no meningeal sign - Cardiac Cardiac: RRR - Respiratory Respiratory: No respiratory distress, Clear bilaterally - Abdomen Abdomen: Soft, Non tender, Other (gravid, surgical incisions healing well) - Derm Derm: Normal color - Extremities Extremities: No deformity, No edema, No calf tenderness / cord - Neuro Neuro: Alert and oriented X 3 Results - Vitals Vitals: Vital Signs - 24 hr 08/29/17 08/29/17 08/29/17 09:47 12:06 13:07 Temperature 36.2 C L 36.5 C Heart Rate 112 H 83 85 Respiratory 18 16 20 Rate Blood Pressure 128/79 145/75 H 140/69 H O2 Saturation 97 97 98 Oxygen O2 Source Room air - EKG (time done) 0941 Rate: Rate (enter#) Rhythm: NSR [place]: Normal Other comments: Other comments (S1Q3T3) - Labs Labs: Laboratory Tests 08/29/17 08/29/17 08/29/17 12:00 12:00 12:00 WBC 9.7 RBC 4.23 Hgb 12.9 Hct 36.4 L MCV 86.0 MCH 30.4 MCHC 35.3 RDW 12.9 Plt Count 241 MPV 8.6 Neut # 6.6 Lymph # 2.5 [place] # 0.5 Eos # 0.1 Baso # 0.0 Absolute Nucleated RBC 0.00 Nucleated RBC % 0.1 D-Dimer 283.9 H Sodium 133 L Potassium 3.6 Chloride 102 Carbon Dioxide 21 Anion Gap 10.0 BUN 6 Creatinine 0.5 Estimated GFR (MDRD) 148 Glucose 85 Calcium 8.8 TSH 08/29/17 12:00 WBC RBC Hgb Hct MCV MCH MCHC RDW Plt Count MPV Neut # Lymph # [place] # Eos # Baso # Absolute Nucleated RBC Nucleated RBC % D-Dimer Sodium Potassium Chloride Carbon Dioxide Anion Gap BUN Creatinine Estimated GFR (MDRD) Glucose Calcium TSH 1.05 PD MEDICAL DECISION MAKING - ED course ED course: FHTs 120s and + movement per pt and no abd pain post op cough and soa now with syncope tachy and S1Q3T3 on EKG will check for anemia TSH lytes etc but must consider PE will start with d dimer d dimer minimally elevated and possibly WNL for 2nd trimester syncope could have simply been vasovagal from rxn to fumes - pt cites a similar rxn to alcohol wipes when she went for her gest diabetes test but she does have several risk factors for PE ( recent admit recent surgery) and is tachy soa and with a cough and S1Q3T3 on EKG hesitate to expose to radiation of CT while preg VQ is the often the first test in pt with concern for PE - would need to order isotope think will d/w OB and req admit to obs for tele, perhaps echo to assess for R heart strain/cardiomyopathy etc, doppler shraddha LE (though most preg DVT would be from pelvic vasculature which cannot be imaged by sono) and if sx persist or above studies + get the VQ w Departure - Departure Disposition: ED Place in Observation Clinical Impression: Syncope Qualifiers: Syncope type: unspecified Qualified Code(s): R55 - Syncope and collapse Qualifiers: Weeks of gestation: 22 weeks Qualified Code(s): Z3A.22 - 22 weeks gestation of Condition: Good Discharge Date/Time: 08/29/17 16:10
[2017-08-29 12:07] LABS: BASOPHILS % (AUTO) 0.4 %; EOSINOPHILS # (AUTO) 0.1 10^3/uL (0.0-0.7); EOSINOPHILS % (AUTO) 1.1 %; HGB - HEMOGLOBIN 12.9 g/dL (12.0-16.0); LYMPHOCYTES # (AUTO) 2.5 10^3/uL (1.5-3.5); LYMPHOCYTES % (AUTO) 26.2 %; MEAN CORPUSCULAR HEMOGLOBIN 30.4 pg (27.0-31.0); MEAN CORPUSCULAR HGB CONC 35.3 g/dL (32.0-36.0); MEAN PLATELET VOLUME 8.6 fL (7.9-10.8); MONOCYTES # (AUTO) 0.5 10^3/uL (0.0-1.0); MONOCYTES % (AUTO) 4.8 %; NEUTROPHILS # (AUTO) 6.6 10^3/uL (1.5-6.6); NEUTROPHILS % (AUTO) 67.5 %; PLT - PLATELET COUNT 241 10^3/uL (130-450); RED BLOOD COUNT 4.23 10^6/uL (4.20-5.40); RED CELL DISTRIBUTION WIDTH 12.9 % (12.0-15.0); WHITE BLOOD COUNT 9.7 x10^3/uL (4.8-10.8)
[2017-08-29 12:17] LABS: CALCIUM 8.8 mg/dL (8.5-10.3); CREATININE 0.5 mg/dL (0.4-1.0)
[2017-08-29] MEDS ORDERED: ONDANSETRON 4 MG/2 ML VIAL IVP PRN (14:47)
[2017-08-29] MEDS ORDERED: ZOLPIDEM 5 MG TABLET PO PRN (14:47)
[2017-08-29] MEDS ORDERED: ACETAMINOPHEN 325 MG TABLET PO PRN (14:47)
[2017-08-29] MEDS ORDERED: SODIUM CHLORIDE FLUSH 0.9% 10 ML SYRINGE IVP PRN (14:47)
[2017-08-29] MEDS ORDERED: IOPAMIDOL-300 100 ML VIAL ONE (15:19)
[2017-08-29] MEDS ORDERED: IOPAMIDOL-300 100 ML VIAL IVP ONE (17:08)
--- NOTE | 2017-08-29 17:48 | CT Report ---
EXAM: CT ANGIOGRAM CHEST EXAM DATE: 08/29/2017 05:08 PM. CLINICAL HISTORY: Tachypnea, SOB , Tachycardia. COMPARISON: None. TECHNIQUE: Routine helical imaging was performed through the chest in the pulmonary arterial phase. I V Contrast: 80 cc Isovue-300. Reconstructions: Coronal 3-D MIP reconstructions.Sagittal and coronal. In accordance with CT protocol optimization, one or more of the following dose reduction techniques w ere utilized for this exam: automated exposure control, adjustment of mA and/or KV based on patient s ize, or use of iterative reconstructive technique. FINDINGS: Pulmonary Arteries: Diagnostic quality: Adequate through the proximal segmental arteries. Timing of contrast bolus limits assessment of mid and distal segmental branch vessels. No evidence of central embolus. RV/LV is within normal limits. There is no interventricular septal bowing. There is no reflux of cont rast material in the IVC. Lungs/Pleura: No consolidation, nodules, or edema. No effusions or pneumothorax. Mediastinum: Normal. No cardiac enlargement or adenopathy. Thoracic Aorta: Unremarkable. Upper Abdomen: There is hepatic steatosis. Visualized portions of the upper abdominal organs demonstr ate no acute abnormalities. Other: None. IMPRESSION: 1. No evidence of acute pulmonary embolism through the proximal segmental branch level. Timing of con trast bolus limits assessment of mid and distal segmental branch vessels. There is no evidence of avni tral embolus. No right heart strain. 2. No evidence of thoracic aortic dissection. 3. Lungs are clear. 4. There is hepatic steatosis. [facility] Referring Provider Line: [phone] SITE ID: [id number]
--- NOTE | 2017-08-29 19:02 | Discharge Plan ---
Discharge Plan Disposition: 01 Home, Self Care Condition: Good Diet: Regular Activity Restrictions: Activity as Tolerated Shower Restrictions: No Driving Restrictions: No Weight Bearing: Full Weight No Smoking: If you smoke, Please STOP! Call for help. Follow-up with: Ani Anand PA-C [Primary Care Provider] -
[2017-08-29 19:13] VITALS: BP 117/58
[2017-08-29] MEDS ORDERED: SODIUM CHLORIDE FLUSH 0.9% 10 ML SYRINGE IVP SCH (22:00)
--- NOTE | 2017-08-30 06:35 | HISTORY & PHYSICAL EXAMINATION ---
DATE OF SERVICE: 08/29/2017 Physician: John Castanon MD DATE OF ADMISSION: 08/29/2017 DIAGNOSES: 1. Syncope. 2. Tachypnea with shortness of breath. 3. 22-week gestation. HISTORY OF PRESENT ILLNESS: The patient is a 26-year-old , 2, para 1-0-0-1 woman at 22 weeks EGA. She reports increased pulse, mild dyspnea and increased respiratory rate today. At one point, she had a 10-second syncopal episode that did not involve a seizure. The patient turned pale, cyanotic, limp and sweaty. She gradually recovered. There was no trauma or fall involved. She does report vague chest pain or tingling at the time. Recently she underwent a laparoscopic appendectomy and has no sequela. She does not report leg pain or swelling in the lower extremity. PAST MEDICAL HISTORY: No chronic disease history other than migrainous headaches. No cardiovascular or respiratory history. She is not a diabetic. PAST SURGICAL HISTORY: Appendectomy. REVIEW OF SYSTEMS: CONSTITUTIONAL: Faint, weak. HEENT: Negative. RESPIRATORY: SOB. See above. CARDIOVASCULAR: See above. GASTROINTESTINAL: Negative. GENITOURINARY: Negative. No contractions, vaginal discharge or fluid leakage reported. MEDICATIONS: 1. vitamins and iron. 2. [place] 5/325 p.r.n. breakthrough pain post surgery. ALLERGIES: 1. AZITHROMYCIN - RASH. 2. DEPAKOTE - HEADACHE. 3. IMITREX - HIVES. SOCIAL HISTORY: Nonsmoker. No alcohol or drug abuse. PHYSICAL EXAMINATION: VITAL SIGNS: Temperature 36.2, pulse 112 on arrival, currently in the 80s, respiratory rate 18, blood pressure 128/76 to 145/75, pulse oximeter 97. GENERAL: The patient is quiet, cooperative, in no apparent distress. Slight increase in breathing rate noted. HEENT: Supple neck. No thyromegaly. No trauma observed. Good dentition. CARDIAC: Regular. No murmur or gallop. LUNGS: Clear. No wheeze. ABDOMEN: Nondistended, soft. No tenderness noted. Surgical incisions healing well. UTERUS: Appropriate size, about 22 cm. Normal resting tone. No tenderness. No contractions noted. heart tones noted to be present. DERMATOLOGIC: Normal color, warm. No rash. EXTREMITIES: Moves all 4 extremities well. No calf tenderness, cord or Nolan sign. No edema noted. NEUROLOGIC: Alert, oriented, moves all 4 extremities well. No sensory disturbance. SKIN: No rash noted. LABORATORY DATA: White count 9.7, hemoglobin 12.9 and platelets 242. D-dimer high (expected often in ), sodium low 133, potassium 3.6, creatinine 0.5, calcium normal, glucose 85. ASSESSMENT AND PLAN: I was called to the emergency room to assess the patient after Dr. Clayton had ruled out most of the common causes for syncope. Her shortness of breath and relative tachycardia may be an expression of normal second trimester changes. However, there is a possibility of pulmonary embolus. There is no evident lower extremity source. Discussed testing with Dr. Zamora of radiology. We concluded that CT scan with shielding was most sensitive and had low risk of radiation exposure. PLAN: Place patient in observation status. Begin workup of syncope and cardiovascular changes. CT of the chest ordered to rule out pulmonary embolus. Will continue observation overnight. ADDENDUM: Radiology reports that there is no evidence of PE or pneumonia. Attestation: Anticipate problem to be resolved in 48 hours or no more than 2 midnights TD: 08/30/2017 06:29 IGOR
[2017-08-30] MEDS ORDERED: FAMOTIDINE 20 MG TABLET PO SCH (09:00)
[2017-08-30] MEDS ORDERED: POLYETHYLENE GLYCOL 3350 17 GM PACKET PO SCH (09:00)
--- NOTE | 2017-10-12 11:38 | DISCHARGE SUMMARY ---
Physician: John Castanon MD DATE OF ADMISSION: 08/29/2017 DATE OF DISCHARGE: 08/29/2017 COMPLICATIONS: None. DIAGNOSES 1. related syncope. 2. Tachypnea with shortness of breath. 3. A 22-week gestation. 4. No evidence of pulmonary embolism or pneumonia. HISTORY OF PRESENT ILLNESS: The patient is a 26-year-old, , 2, para 1-0-0-1 woman at 22 weeks' gestation. She reports increased pulse, mild dyspnea, and increased respiratory rate. She had a 10-second syncopal episode. Reference my mine and the ER physician's admission H and P. HOSPITAL COURSE: The patient was admitted to observation status to prepare for further testing. Pulmonary embolism was a concern. I had a conference with Dr. Zamora, radiologist, and it was decided that a CT scan of the chest would give definitive diagnosis with least radiation exposure to the fetus once shielding was placed. CT scan was done, which found no evidence of PE or pneumonia. The patient began to feel better during the hospitalization. I explained the nature of blood pressure changes in the second trimester and potential for syncope. She was warned not to operate heavy equipment or drive if she continues to have blood pressure instability and faintness. She was encouraged to go home and walk and do light activities. FOLLOWUP: She will be seen in the obstetrics clinic within 1 week. DISCHARGE MEDICATIONS 1. vitamins. 2. Iron. TD: 10/12/2017 11:38
== END 2017-08-29 19:25 | disposition home or self-care (01) ==
LOC: ED 09:31 → OBS 14:47
PROVIDERS: ADMIT Obstetrics & Gynecology; ATTEND Obstetrics & Gynecology
DX: O26.893 Other specified pregnancy related conditions, third trimester (principal); R55 Syncope and collapse; R06.82 Tachypnea, not elsewhere classified; R00.0 Tachycardia, unspecified; Z3A.22 22 weeks gestation of pregnancy; Z98.890 Other specified postprocedural states
CPT/HCPCS: 36415; 71275; 80048; 84443; 85025; 85379; 93005; 96360; 99284; G0378; Q9967; 99283

== ENCOUNTER 2017-08-31 07:38 | Outpatient (CLI) | payer MEDICAID ==
--- NOTE | 2017-08-31 12:25 | Ultrasound Report ---
OB ULTRASOUND: 08/31/2017 CLINICAL INDICATION: anatomy. TECHNIQUE: Real-time scanning was performed with physician representative static images obtained. LAST MENSTRUAL PERIOD 03/23/2017 Clinical Age 23 weeks 0 days US Age 22 weeks 4 days EFW Hadlock 532 g EFW% Hadlock 32% Heart Rate 139 bpm EDC 12/28/2017 US EDC 12/31/2017 BPD [place] 21 weeks 6 days; Mean mm 52.4 HC [place] 23 weeks 0 days; Mean mm 209.8 AC [place] 22 weeks 6 days; Mean mm 179.2 FL [place] 22 weeks 5 days; Mean mm 39.6 Presentation variable Placental Location posterior Cervical Length 4.9 cm Amniotic Fluid Subjectively normal FINDINGS: There is a single viable intrauterine gestation, in variable position. heart rate is 139 BPM. The placenta is posterior, without evidence of previa. Amniotic fluid volume is subjectively normal, with a deepest pocket of 3.7 cm. By size, the fetus measures 22 weeks 4 days (23 weeks 0 days by LMP). The following anatomic structures were visualized and appear normal: The intracranial contents, including the ventricles and posterior fossa; the lips and orbits; the spine; the heart, including 4 chamber view and outflow tracts, and diaphragm; the abdominal contents, including the stomach, the bilateral kidneys, and urinary bladder, as well as a normal 3 vessel cord insertion; 4 limbs. No free fluid or adnexal lesion is appreciated. IMPRESSION: SINGLE VIABLE INTRAUTERINE GESTATION, WITH SIZE IN KEEPING WITH LMP DATING. NORMAL ANATOMIC SURVEY. TD: 08/31/2017 10:14 [facility]
== END 2017-08-31 07:39 | disposition home or self-care (01) ==
LOC: DI 07:38
PROVIDERS: ATTEND Obstetrics & Gynecology
DX: Z36.9 Encounter for antenatal screening, unspecified (principal)
CPT/HCPCS: 76811

== ENCOUNTER 2017-10-31 08:00 | Outpatient (CLI) | payer MEDICAID ==
[2017-10-31 12:54] LABS: MEAN CORPUSCULAR HEMOGLOBIN 29.4 pg (27.0-31.0); MEAN CORPUSCULAR VOLUME 86.3 fL (81.0-99.0); RED BLOOD COUNT 4.41 10^6/uL (4.20-5.40); RED CELL DISTRIBUTION WIDTH 13.3 % (12.0-15.0); WHITE BLOOD COUNT 11.1 x10^3/uL (4.8-10.8)
[2017-10-31 13:12] LABS: HB2 TOTAL 14.1 g/dL; HEMOGLOBIN A1C 0.46 g/dL; HEMOGLOBIN A1C % 5.1 % (4.6-6.2)
== END 2017-10-31 08:01 | disposition home or self-care (01) ==
LOC: LAB.WCP 08:00
PROVIDERS: ATTEND Obstetrics & Gynecology
DX: Z34.90 Encounter for supervision of normal pregnancy, unspecified, unspecified trimester (principal)
CPT/HCPCS: 36415; 83036; 86850

== ENCOUNTER 2017-12-02 15:05 | Outpatient (CLI) | payer MEDICAID | END 2017-12-02 15:06 | disposition home or self-care (01) | LOC: LAB.R 15:05 | PROVIDERS: ATTEND Obstetrics & Gynecology | DX: Z36.89 Encounter for other specified antenatal screening (principal) | CPT/HCPCS: 87081 ==

== ENCOUNTER 2017-12-30 14:47 | Outpatient (CLI) | payer MEDICAID ==
[2017-12-30 15:36] VITALS: BP 128/65
[2017-12-30 16:02] LABS: CREATININE,URINE 178.7 mg/dL; PROTEIN/CREATININE RATIO,URINE 0.2 (<=0.2)
== END 2017-12-30 16:15 | disposition home or self-care (01) ==
LOC: WFO 14:47 → FBP 14:49 → WFO 16:15
PROVIDERS: ATTEND Obstetrics & Gynecology
DX: O16.3 Unspecified maternal hypertension, third trimester (principal); Z3A.40 40 weeks gestation of pregnancy
CPT/HCPCS: 59025; 82570; 84156

== ENCOUNTER 2017-12-31 18:19 | Inpatient (IN) | payer MEDICAID ==
[2017-12-31 19:05] LABS: RUPTURE OF MEMBRANES PLUS POSITIVE (NEGATIVE)
[2017-12-31] MEDS ORDERED: SODIUM CHLORIDE FLUSH 0.9% 10 ML SYRINGE IVP PRN (20:03)
[2017-12-31] MEDS ORDERED: ONDANSETRON 4 MG/2 ML VIAL IVP PRN ×2 (20:45→22:45)
[2017-12-31] MEDS ORDERED: fentaNYL 100 MCG/2 ML VIAL IVP PRN (20:45)
[2017-12-31] MEDS ORDERED: SERTRALINE 25 MG TABLET PO SCH (21:00)
[2017-12-31] MEDS: LACTATED RINGERS 1,000 ML IV SCH ×2 (21:18→22:49)
[2017-12-31 21:21] LABS: BASOPHILS % (AUTO) 0.2 %; EOSINOPHILS # (AUTO) 0.1 10^3/uL (0.0-0.7); EOSINOPHILS % (AUTO) 0.5 %; HGB - HEMOGLOBIN 14.3 g/dL (12.0-16.0); LYMPHOCYTES # (AUTO) 2.7 10^3/uL (1.5-3.5); LYMPHOCYTES % (AUTO) 24.3 %; MEAN CORPUSCULAR HEMOGLOBIN 29.7 pg (27.0-31.0); MEAN CORPUSCULAR HGB CONC 34.1 g/dL (32.0-36.0); MEAN CORPUSCULAR VOLUME 87.1 fL (81.0-99.0); MEAN PLATELET VOLUME 9.5 fL (7.9-10.8); MONOCYTES # (AUTO) 0.6 10^3/uL (0.0-1.0); MONOCYTES % (AUTO) 5.5 %; NEUTROPHILS # (AUTO) 7.7 10^3/uL (1.5-6.6); NEUTROPHILS % (AUTO) 69.5 %; PLT - PLATELET COUNT 249 10^3/uL (130-450); RED BLOOD COUNT 4.82 10^6/uL (4.20-5.40); RED CELL DISTRIBUTION WIDTH 14.2 % (12.0-15.0); WHITE BLOOD COUNT 11.1 x10^3/uL (4.8-10.8)
[2017-12-31] MEDS ORDERED: BUPIVACAINE 0.25% PF 30 ML VIAL SUBQ ONE (22:00)
[2017-12-31] MEDS ORDERED: LIDOCAINE-PF 2% 10 ML AMP SUBQ ONE (22:00)
[2017-12-31] MEDS ORDERED: fent/BUPIV 2 MCG/0.125% 250 ML EP ONE (22:36)
[2017-12-31] MEDS ORDERED: fent/BUPIV 2 MCG/0.125% 250 ML EP PRN (22:45)
[2017-12-31] MEDS ORDERED: NALOXONE 0.4 MG/ML VIAL IVP PRN (22:45)
[2017-12-31] MEDS ORDERED: LACTATED RINGERS 500 ML IV ONE (22:45)
[2017-12-31] MEDS ORDERED: NALBUPHINE 10 MG/ML AMP IVP PRN (22:45)
[2017-12-31] MEDS ORDERED: ePHEDrine 50 MG/ML VIAL IVP PRN (22:45)
--- NOTE | 2017-12-31 23:07 | HISTORY & PHYSICAL EXAMINATION ---
Chief Complaint - Chief Complaint Chief Complaint: Contractions & Leaking Fluid History of Present Illness - Admitted From Admitted From:: Home to [facility] - History Obtained From Records Reviewed: YES History obtained from: PATIENT Exam Limitations: NONE - History of Present Illness HPI Comment/Other: 27 y.o EDC 12/28/17 based on LMP and 9 week US CWD, EGA 40 3/7 weeks admitted to [facility] with SROM in early labor with regular, painful and spontaneous uterine contractions. SROM clear occurred at 1720 hours today. GBS negative. Category 1 tracing. Epidural placed after admission. Cx 5/95/-2 at 2209 hours. PNC: Appendectomy at 20 weeks EGA this 08/25/17 Anxiety: Zoloft 25 mg QHS PSH: appy as above SHX: Negative for smoking/ETOH/drugs Meds: Zoloft 25 mg qhs PMH: Anxiety Allergy: Zithromax, Depakote, Sumatriptan OB US: 06/10/17: 9.5 weeks, US EDC of 12/29/17 08/31/17: Normal anatomic survey LABS: (05/17/17) 05/17/17 PAP/GC/CT all Neg (06/07/17) MBT O POS PNAS NEG HCT 39.0 PLT 254 RPR NR RUBELLA REACTIVE HBSAG NR 1 HR GTT 143 UA NEG (07/22/17) 3 HR GTT 95/153/120/78 (10/31/17) PNAS NEG HCT 38.1 PLT 254 (12/02/17) GBS NEG IMMUNIZATIONS: TDAP 11/03/17 History - Past Medical History Cardiovascular: reports: None Respiratory: reports: None Endocrine/Autoimmune: reports: None GI: reports: None : reports: None HEENT: reports: None Psych: reports: Depression, Anxiety, Panic attacks Musculoskeletal: reports: Chronic back pain Derm: reports: None MRSA Hx?: No Other Past Medical History: Anxiety - Past Surgical History General: reports: Appendectomy - Family & Social History Living arrangement: At home Living Situation: With family - Substance History Use: Uses substance without health or social issues: NONE - POLST Patient has POLST: No POLST Status: Full Code Meds/Allgy - Home Medications Home Medications: Ambulatory Orders Medication Instructions Recorded Confirmed Vit No.78/Iron/FA 1 tab PO DAILY 12/30/13 12/31/17 [Prenatabs FA Tablet] Sertraline [Zoloft] 0.5 tab ORAL ACHS 12/31/17 12/31/17 - Allergies Allergies/Adverse Reactions: Allergies Allergy/AdvReac Type Severity Reaction Status Date / Time azithromycin Allergy Rash Verified 08/07/17 19:31 divalproex sodium AdvReac Headache Verified 08/07/17 19:31 [From Depakote] sumatriptan [From Imitrex] AdvReac Hives Verified 08/07/17 19:31 sumatriptan succinate * AdvReac Hives Verified 08/07/17 19:31 [From Imitrex] Review of Systems - Other Findings Other Findings: ROS NEGATIVE FOR: HEENT CV RESPIRATORY GI/ NEURO SKELETAL MUSCULAR SKIN ENDOCRINE Exam - Vital Signs Vital Signs: Vital Signs x48h Temp Pulse Resp BP Pulse Ox 12/31/17 18:30 36.5 C 125 H 16 131/83 H 96 - Physical Exam General Appearance: positive: Alert, Mild distress Eyes Bilateral: positive: Normal inspection ENT: positive: ENT inspection nml Neck: positive: Nml inspection Respiratory: positive: Chest non-tender, No respiratory distress, Breath sounds nml Cardiovascular: positive: Regular rate & rhythm, No murmur Abdomen: positive: Non-tender Back: positive: Nml inspection Skin: positive: Color nml Extremities: positive: Non-tender, Full ROM Neurologic/Psychiatric: positive: Oriented x3, Motor nml, Mood/affect nml Conclusion/Plan - Lab Results Fish Bones: 12/31/17 20:50 - Other Other Results/Comments: IMPRESSION/PLAN: # 27 y.o. 40 3/7 weeks with SROM clear since 1720 hours in labor, 5 cm dilation last exam, spontaneous contractions. Category I FHR, Epidural in place with henriquez, GBS Negative. Labor managed expectantly. # Appendectomy 08/25/17 laparoscopically this . # Anxiety: Zoloft 25 mg qhs. Evening dose given here after admission. Plan: Routine orders. Expectant management.
[2018-01-01] MEDS ORDERED: OXYTOCIN/SODIUM CHLORIDE 500 ML IV ONE (00:34)
[2018-01-01] MEDS ORDERED: SODIUM CHLORIDE FLUSH 0.9% 10 ML SYRINGE IVP SCH (01:00)
--- NOTE | 2018-01-01 01:50 | PROVIDER PROGRESS NOTE ---
Subjective - Prog Note Date Prog Note Date: 01/01/18 (DELIVERY NOTE) Prog Note Time: 01:43 - Subjective Subjective: DELIVERY NOTE: Patient progressed in spontaneous labor to C/C/0 at 2355 hours. Rosas removed. Delivered at 0021 hours viable male infant with 8/9. Infant placed on maternal abdomen. Cord clamped and cut after 1 minute obtained. IV pitocin then infused. Placenta delivered spontaneously at 0029 hours. On exam, no cervical lacerations noted. Patient noted to have the following lacerations: Midline PUL above urethra and below clitoris (briskly bleeding): repaired with interrupted 3-0 monocryl x 4 2nd degree perineal laceration: repaired with running 3-0 vicryl in layers in routine fashion. 4 inch right external right labial laceration running vertically along edge of right labia majora: repaired with interrupted 4-0 monocryl suture Rosas catheter placed by me for overnight given above lacs. EBL 400 ml. Both mother and baby doing well. Objective - Vital Signs/Intake & Output Vital Signs: Vital Signs x48h Temp Pulse Resp BP Pulse Ox 12/31/17 18:30 36.5 C 125 H 16 131/83 H 96 Intake & Output: Intake & Output 12/29/17 12/30/17 12/31/17 01/01/18 23:59 23:59 23:59 23:59 Intake Total 1000 Balance 1000 - Lab Results Fish Bones: 12/31/17 20:50 Other Labs: Lab Results x24hrs 12/31/17 12/31/17 12/31/17 Range/Units 20:50 20:50 18:47 WBC 11.1 H (4.8-10.8) x10^3/uL RBC 4.82 (4.20-5.40) 10^6/uL Hgb 14.3 (12.0-16.0) g/dL Hct 42.0 (37.0-47.0) % MCV 87.1 (81.0-99.0) fL MCH 29.7 (27.0-31.0) pg MCHC 34.1 (32.0-36.0) g/dL RDW 14.2 (12.0-15.0) % Plt Count 249 (130-450) 10^3/uL MPV 9.5 (7.9-10.8) fL Neut # (Auto) 7.7 H (1.5-6.6) 10^3/uL Lymph # (Auto) 2.7 (1.5-3.5) 10^3/uL [place] # (Auto) 0.6 (0.0-1.0) 10^3/uL Eos # (Auto) 0.1 (0.0-0.7) 10^3/uL Baso # (Auto) 0.0 (0.0-0.1) 10^3/uL Absolute Nucleated RBC 0.01 x10^3/uL Nucleated RBC % 0.1 /100WBC Membranes Rupture POSITIVE A (NEGATIVE) Blood Type O POSITIVE Antibody Screen NEGATIVE
[2018-01-01] MEDS ORDERED: OXYTOCIN/SODIUM CHLORIDE 250 ML IV ONE ×2 (01:55→01:57)
[2018-01-01] MEDS ORDERED: WITCH HAZEL/GLYCERIN 1 EACH MED..PAD TOP PRN (01:57)
[2018-01-01] MEDS ORDERED: METHYLERGONOVINE 0.2 MG/ML AMP IM PRN (01:57)
[2018-01-01] MEDS ORDERED: IBUPROFEN 800 MG TABLET PO SCH (02:00)
[2018-01-01] MEDS ORDERED: LACTATED RINGERS 1,000 ML IV SCH (02:00)
[2018-01-01] MEDS ORDERED: OXYTOCIN/SODIUM CHLORIDE 500 ML IV SCH (03:00)
[2018-01-01] MEDS: SERTRALINE 50 MG TABLET PO SCH ×2 (03:07→21:39)
[2018-01-01] MEDS: oxyCOD/ACETAMIN 5 MG/325 MG TABLET PO PRN ×6 (03:07→23:00)
[2018-01-01] MEDS ORDERED: SIMETHICONE CHEW 80 MG TABLET PO SCH (06:00)
[2018-01-01] MEDS: DOCUSATE SODIUM 100 MG CAPSULE PO SCH ×2 (10:45→21:39)
[2018-01-01] MEDS ORDERED: HYDROCORTISONE/PRAMOXINE 10 GM PR PRN (20:38)
[2018-01-02] MEDS: ACETAMINOPHEN 325 MG TABLET PO PRN ×2 (03:13→08:08)
[2018-01-02] MEDS: DOCUSATE SODIUM 100 MG CAPSULE PO SCH (08:10)
[2018-01-02 10:05] LABS: BASOPHILS % (AUTO) 0.3 %; EOSINOPHILS # (AUTO) 0.2 10^3/uL (0.0-0.7); HGB - HEMOGLOBIN 11.2 g/dL (12.0-16.0); LYMPHOCYTES # (AUTO) 2.7 10^3/uL (1.5-3.5); LYMPHOCYTES % (AUTO) 24.2 %; MEAN CORPUSCULAR HEMOGLOBIN 30.3 pg (27.0-31.0); MEAN CORPUSCULAR HGB CONC 34.2 g/dL (32.0-36.0); MEAN CORPUSCULAR VOLUME 88.6 fL (81.0-99.0); MEAN PLATELET VOLUME 8.5 fL (7.9-10.8); MONOCYTES # (AUTO) 0.5 10^3/uL (0.0-1.0); MONOCYTES % (AUTO) 4.4 %; NEUTROPHILS # (AUTO) 7.8 10^3/uL (1.5-6.6); NEUTROPHILS % (AUTO) 69.1 %; PLT - PLATELET COUNT 196 10^3/uL (130-450); WHITE BLOOD COUNT 11.3 x10^3/uL (4.8-10.8)
[2018-01-02] MEDS ORDERED: POLYETHYLENE GLYCOL 3350 17 GM PACKET PO PRN (10:11)
[2018-01-02 10:36] VITALS: BP 133/72
--- NOTE | 2018-01-02 10:54 | Discharge Plan ---
Discharge Plan Disposition: Home, Self Care Diet: Regular Shower Restrictions: No Driving Restrictions: Yes (2 weeks) Weight Bearing: Full Weight No Smoking: If you smoke, Please STOP! Call for help. Follow-up with: Denice Guerrero DO [Provider Admit Priv/Credential] -
--- NOTE | 2018-01-02 10:57 | DISCHARGE SUMMARY ---
"Discharge Summary Admit Date: 12/31/17 Discharge Date: 01/02/18 Discharging Provider: ESCOBAR Code Status: Attempt Resuscitation Condition at Discharge: Good - DIAGNOSES Admission Diagnoses: labor Discharge Diagnoses with Status of Each Condition: Labor, Status Good - HPI History of Present Illness: 27 yo female 40 3/7 weeks admitted with SROM in early labor at 2 cm dilation. - CONSULTS | PROCEDURES Procedures: Epidural Anesthesia Second Degree Perineal Laceration and Repair - HOSPITAL COURSE Hospital Course: Patient progressed through labor very well, delivered at 0021 hours on viable male infant, 8# 7.5 onz. with 8/9. Uncomplicated course. Discharged home 01/02/18. - ALLERGIES Allergies/Adverse Reactions: Allergies Allergy/AdvReac Type Severity Reaction Status Date / Time azithromycin Allergy Rash Verified 08/07/17 19:31 divalproex sodium AdvReac Headache Verified 08/07/17 19:31 [From Depakote] ibuprofen AdvReac Headache Verified 01/01/18 02:58 sumatriptan [From Imitrex] AdvReac Hives Verified 08/07/17 19:31 sumatriptan succinate * AdvReac Hives Verified 08/07/17 19:31 [From Imitrex] - MEDICATIONS Home Medications: Ambulatory Orders Medication Instructions Recorded Confirmed Vit No.78/Iron/FA 1 tab PO DAILY 12/30/13 01/01/18 [Prenatabs FA Tablet] Sertraline [Zoloft] 0.5 tab ORAL ACHS 12/31/17 12/31/17 Loratadine [Claritin] 1 tab PO DAILY 01/01/18 01/01/18 - PHYSICAL EXAM AT DISCHARGE General Appearance: positive: No acute distress Eyes Bilateral: positive: Normal inspection ENT: positive: ENT inspection nml Neck: positive: Nml inspection Peripheral Pulses: positive: 2+ Abdomen: positive: Non-tender Back: positive: Nml inspection Skin: positive: Color nml, No rash Extremities: positive: Non-tender, Full ROM - LABS Result Diagrams: 01/02/18 09:58 - FOLLOW UP Follow Up: F/U in [facility] in 6 weeks with a physician provider. - TIME SPENT Time Spent in Discharge (Minutes): 30"
[2018-01-02] MEDS: oxyCOD/ACETAMIN 5 MG/325 MG TABLET PO PRN (11:54)
--- NOTE | 2018-01-02 17:11 | Labor Flowsheet ---
Labor Flowsheet Datetime Report Generated by CPN: 01/02/2018 17:11 Datetime: 01/02/2018 10:29 VITAL SIGNS NBP Sys/Cristina/Mean (mmHg): 133 : 72 : 87 Pulse: 89 SpO2 (%): 99 Datetime: 01/01/2018 05:11 ANESTHESIA Anesthesia Interview: E Epidural Positioning: Sitting Epidural Procedure Other: Cath Removed; Cath Intact Datetime: 01/01/2018 00:59 Membranes Ruptured Date/Time: 12/31/2017 17:20 Membranes Rupture Method: Spontaneous Amniotic Fluid Color: Light Meconium Amniotic Fluid Amount: Moderate Amniotic Fluid Odor: Normal Datetime: 01/01/2018 00:15 Membrane Comments: pt pushing with contractions COMMUNICATION LaborFlag: Labor Datetime: 01/01/2018 00:10 I/O Interventions: Rosas Discontinued Datetime: 12/31/2017 23:55 VAGINAL EXAM Dilatation (cm): 10.0 Effacement (%): 100 Station: 0 Exam by: Dr Nicole Datetime: 12/31/2017 23:02 Respirations: 17 Temperature (C): 36.6 Datetime: 12/31/2017 22:36 Epidural Procedure: Completed Datetime: 12/31/2017 22:09 Vaginal Exam Comments: head not well applied to cervix Datetime: 12/31/2017 21:54 UTERINE ACTIVITY Monitor Interventions for UA: [place] Adjusted Datetime: 12/31/2017 21:29 PATIENT CARE Patient Position/Activity: Left Lateral Datetime: 12/31/2017 21:15 ASSESSMENT A Comments: Dr Rivera updated that tracing with late decels. Pt to left side. Pt will be t ransferred to LDRP 2 soon. IV running.
== END 2018-01-02 16:00 | disposition home or self-care (01) | DRG 775 ==
LOC: WFO 18:19 → FBP 18:20 → WFO 19:55 → FBP 19:56
PROVIDERS: ADMIT Obstetrics & Gynecology; ATTEND Obstetrics & Gynecology
PROC: 10E0XZZ Delivery of Products of Conception, External Approach (ICD-10-PCS; principal; 2018-01-01)
PROC: 0KQM0ZZ Repair Perineum Muscle, Open Approach (ICD-10-PCS; 2018-01-01)
DX: O99.344 Other mental disorders complicating childbirth (principal); Z37.0 Single live birth; F41.0 Panic disorder [episodic paroxysmal anxiety]; O70.1 Second degree perineal laceration during delivery; Z3A.40 40 weeks gestation of pregnancy; Z79.899 Other long term (current) drug therapy
CPT/HCPCS: 36415; 84112; 85025; 86780; 86850; 86900; 86901; 99211; 99214

== ENCOUNTER 2018-09-20 09:01 | Outpatient (CLI) | payer OTHER ==
--- NOTE | 2018-09-20 12:06 | XRAY Report ---
Reason: FOOT PX, RT Procedure Date: 09/20/2018 Accession Number: [id number] / [id number] Procedure: WCP - Foot 3 View RT CPT Code: FULL RESULT: EXAM: RIGHT FOOT RADIOGRAPHY EXAM DATE: 09/20/2018 09:18 AM. CLINICAL HISTORY: Foot pain, right. COMPARISON: None. TECHNIQUE: 3 views. FINDINGS: Bones: Normal. No fractures or bone lesions. Joints: Normal. No subluxations. Soft Tissues: Normal. No soft tissue swelling. IMPRESSION: Normal foot radiography. RADIA
== END 2018-09-20 09:02 | disposition home or self-care (01) ==
LOC: DI.WCP 09:01
PROVIDERS: ATTEND Physician Assistant
DX: M79.671 Pain in right foot (principal)

== ENCOUNTER 2019-07-05 16:55 | Outpatient (CLI) | payer OTHER ==
--- NOTE | 2019-07-06 12:05 | MRI Report ---
Reason: INTERNAL DERANGEMENT OF RT KNEE Procedure Date: 07/05/2019 Accession Number: [id number] / [id number] Procedure: MRI - Knee RT W/O CPT Code: Final Report FULL RESULT: EXAM: RIGHT KNEE MRI WITHOUT CONTRAST EXAM DATE: 07/05/2019 05:55 PM. CLINICAL HISTORY: Right knee internal derangement. COMPARISON: None. TECHNIQUE: Multiplanar, multisequence T1-weighted and fluid-sensitive sequences of the knee without contrast. Other: None. FINDINGS: Bones: No fractures or subluxations. No marrow edema. No bone lesions. Articular Cartilage: Unremarkable. Medial Meniscus: The medial meniscus is intact. Lateral Meniscus: The lateral meniscus is intact. Cruciate Ligaments: The anterior and posterior cruciate ligaments are intact. Collateral Ligaments: The medial collateral and lateral collateral ligamentous structures are intact. Tendons: The quadriceps, patellar, semimembranosus, and popliteus tendons are unremarkable. Musculature: No edema or fatty atrophy. Other: A mild knee effusion is present. No popliteal cyst. No loose bodies. The medial and lateral retinacula are intact. The subcutaneous tissues and fat pads are unremarkable. IMPRESSION: Mild knee effusion without obvious internal derangement. RADIA
== END 2019-07-05 16:56 | disposition home or self-care (01) ==
LOC: DI 16:55
PROVIDERS: ATTEND Physician Assistant
DX: M25.461 Effusion, right knee (principal)

== ENCOUNTER 2019-11-07 08:30 | Outpatient (CLI) | payer OTHER | END 2019-11-07 23:59 | disposition home or self-care (01) | LOC: LAB.R 08:30 | PROVIDERS: ATTEND Family Medicine | DX: N39.0 Urinary tract infection, site not specified (principal) | CPT/HCPCS: 87086 ==

== ENCOUNTER 2022-08-11 08:00 | Outpatient (CLI) | payer OTHER | END 2022-08-11 23:59 | disposition home or self-care (01) | LOC: LAB.N 08:00 | PROVIDERS: ATTEND Registered Nurse | DX: R30.0 Dysuria (principal) | CPT/HCPCS: 87086; 87181 ==

== ENCOUNTER 2022-10-27 08:00 | Outpatient (CLI) | payer BC, OTHER | END 2022-10-27 23:59 | disposition home or self-care (01) | LOC: LAB.WCP 08:00 | PROVIDERS: ATTEND Physician Assistant Medical | DX: N39.0 Urinary tract infection, site not specified (principal) | CPT/HCPCS: 87086 ==

== ENCOUNTER 2022-11-02 08:51 | Outpatient (CLI) | payer BC ==
[2022-11-02 12:01] LABS: BASOPHILS # (AUTO) 0.1 10^3/uL (0.0-0.1); BASOPHILS % (AUTO) 0.6 %; EOSINOPHILS # (AUTO) 0.1 10^3/uL (0.0-0.7); EOSINOPHILS % (AUTO) 1.3 %; HCT - HEMATOCRIT 43.5 % (37.0-47.0); LYMPHOCYTES # (AUTO) 4.2 10^3/uL (1.5-3.5); LYMPHOCYTES % (AUTO) 39.6 %; MEAN CORPUSCULAR HEMOGLOBIN 29.8 pg (27.0-31.0); MEAN CORPUSCULAR HGB CONC 34.5 g/dL (32.0-36.0); MEAN CORPUSCULAR VOLUME 86.5 fL (81.0-99.0); MEAN PLATELET VOLUME 10.4 fL (7.9-10.8); MONOCYTES # (AUTO) 0.5 10^3/uL (0.0-1.0); MONOCYTES % (AUTO) 4.6 %; NEUTROPHILS # (AUTO) 5.6 10^3/uL (1.5-6.6); NEUTROPHILS % (AUTO) 53.5 %; PLT - PLATELET COUNT 319 10^3/uL (130-450); RED BLOOD COUNT 5.03 10^6/uL (4.20-5.40); RED CELL DISTRIBUTION WIDTH 12.1 % (12.0-15.0); WHITE BLOOD COUNT 10.5 x10^3/uL (4.8-10.8)
[2022-11-02 12:37] LABS: ALBUMIN 4.1 g/dL (3.2-5.5); ALBUMIN/GLOBULIN RATIO 1.1 (1.0-2.2); ALKALINE PHOSPHATASE 71 IU/L (42-121); ALT ALANINE AMINOTRANSFERASE 51 IU/L (10-60); AST ASPARTATE AMINOTRANSFERASE 33 IU/L (10-42); BILIRUBIN,TOTAL 0.4 mg/dL (0.2-1.0); BUN - BLOOD UREA NITROGEN 12 mg/dL (6-20); CALCIUM 8.9 mg/dL (8.5-10.3); CARBON DIOXIDE - CO2 23 mmol/L (21-32); CHLORIDE 105 mmol/L (101-111); CHOL/HDL RATIO 6.5 (<4.4); CHOLESTEROL 213 mg/dL; CREATININE 0.7 mg/dL (0.4-1.0); GFR - MDRD 97 (>89); GLUCOSE 135 mg/dL (70-100); HDL CHOLESTEROL 33 mg/dL; LDL CHOLESTEROL,CALCULATED 136 mg/dL; LDL/HDL RATIO 4.1 (<4.4); MAGNESIUM 2.1 mg/dL (1.7-2.8); POTASSIUM 3.7 mmol/L (3.5-5.0); SODIUM 135 mmol/L (135-145); TOTAL PROTEIN 7.7 g/dL (6.7-8.2); TRIGLYCERIDES 221 mg/dL; VLDL CHOLESTEROL 44 mg/dL
[2022-11-02 12:43] LABS: THYROID STIMULATING HORMONE 2.84 uIU/mL (0.34-5.60)
== END 2022-11-02 08:52 | disposition home or self-care (01) ==
LOC: LAB.N 08:51
PROVIDERS: ATTEND Physician Assistant Medical
DX: Z00.00 Encounter for general adult medical examination without abnormal findings (principal); E55.9 Vitamin D deficiency, unspecified; N39.0 Urinary tract infection, site not specified; F41.9 Anxiety disorder, unspecified; F32.A Depression, unspecified
CPT/HCPCS: 36415; 80053; 80061; 82306; 82607; 83721; 83735; 84443; 85025; 87086

== ENCOUNTER 2022-12-29 09:15 | Outpatient (CLI) | payer BC ==
[2022-12-29 12:08] LABS: GLUCOSE, URINE (UA) NEGATIVE (NEGATIVE); KETONES,URINE (UA) NEGATIVE (NEGATIVE); LEUKOCYTE ESTERASE, URINE NEGATIVE (NEGATIVE); NITRITE,URINE NEGATIVE (NEGATIVE); OCCULT BLOOD,URINE NEGATIVE (NEGATIVE); PROTEIN,URINE NEGATIVE (NEGATIVE); UROBILINOGEN,URINE 0.2 (NORMAL) E.U./dL (NORMAL)
[2022-12-29 12:13] LABS: BACTERIA,URINE Few /HPF (None Seen); BILIRUBIN,URINE NEGATIVE (NEGATIVE); CLARITY,URINE CLOUDY (CLEAR); ICTOTEST,URINE NEGATIVE; RBC,URINE 0-5 /HPF (0-5); SQUAMOUS EPITHELIAL CELL,UR RARE Squamous (<= Few); WBC,URINE 0-3 /HPF (0-5)
== END 2022-12-29 09:30 | disposition home or self-care (01) ==
LOC: LAB.N 09:15
PROVIDERS: ATTEND Emergency Medicine
DX: R30.0 Dysuria (principal)
CPT/HCPCS: 81001; 87086

== ENCOUNTER 2023-05-27 10:30 | Outpatient (CLI) | payer BC | END 2023-05-27 10:45 | disposition home or self-care (01) | LOC: LAB.N 10:30 | PROVIDERS: ATTEND Family Medicine | DX: R30.0 Dysuria (principal) | CPT/HCPCS: 87086; 87181 ==

== ENCOUNTER 2023-06-13 09:15 | Outpatient (CLI) | payer BC | END 2023-06-13 09:30 | disposition home or self-care (01) | LOC: LAB.N 09:15 | PROVIDERS: ATTEND Registered Nurse | DX: R30.0 Dysuria (principal) | CPT/HCPCS: 87086; 87181 ==

== ENCOUNTER 2023-08-24 13:45 | Outpatient (CLI) | payer BC | END 2023-08-24 14:00 | disposition home or self-care (01) | LOC: LAB.N 13:45 | PROVIDERS: ATTEND Family Medicine | DX: R30.0 Dysuria (principal) | CPT/HCPCS: 87086; 87181 ==

== ENCOUNTER 2024-04-14 08:36 | Outpatient (CLI) | payer BC ==
[2024-04-14 09:23] LABS: BASOPHILS % (AUTO) 0.5 %; EOSINOPHILS # (AUTO) 0.2 10^3/uL (0.0-0.7); EOSINOPHILS % (AUTO) 2.1 %; HGB - HEMOGLOBIN 14.2 g/dL (12.0-16.0); LYMPHOCYTES # (AUTO) 2.3 10^3/uL (1.5-3.5); LYMPHOCYTES % (AUTO) 30.1 %; MEAN CORPUSCULAR HEMOGLOBIN 29.9 pg (27.0-31.0); MEAN CORPUSCULAR HGB CONC 34.6 g/dL (32.0-36.0); MEAN CORPUSCULAR VOLUME 86.3 fL (81.0-99.0); MEAN PLATELET VOLUME 9.8 fL (7.9-10.8); MONOCYTES # (AUTO) 0.3 10^3/uL (0.0-1.0); MONOCYTES % (AUTO) 4.3 %; NEUTROPHILS # (AUTO) 4.8 10^3/uL (1.5-6.6); NEUTROPHILS % (AUTO) 62.9 %; PLT - PLATELET COUNT 327 10^3/uL (130-450); RED BLOOD COUNT 4.75 10^6/uL (4.20-5.40); RED CELL DISTRIBUTION WIDTH 12.2 % (12.0-15.0); WHITE BLOOD COUNT 7.6 x10^3/uL (4.8-10.8)
[2024-04-14 09:38] LABS: ALBUMIN 4.1 g/dL (3.2-5.5); ALBUMIN/GLOBULIN RATIO 1.5 (1.0-2.2); ALKALINE PHOSPHATASE 81 IU/L (42-121); ALT ALANINE AMINOTRANSFERASE 12 IU/L (10-60); AST ASPARTATE AMINOTRANSFERASE 12 IU/L (10-42); BILIRUBIN,TOTAL 0.8 mg/dL (0.2-1.0); BUN - BLOOD UREA NITROGEN 10 mg/dL (6-20); CALCIUM 9.2 mg/dL (8.5-10.3); CARBON DIOXIDE - CO2 26 mmol/L (21-32); CHLORIDE 104 mmol/L (101-111); CHOL/HDL RATIO 5.4 (<4.4); CHOLESTEROL 184 mg/dL; CREATININE 0.7 mg/dL (0.6-1.3); GFR - MDRD 96 (>89); GLUCOSE 105 mg/dL (74-104); HDL CHOLESTEROL 34 mg/dL; LDL CHOLESTEROL,CALCULATED 117 mg/dL; LDL/HDL RATIO 3.4 (<4.4); POTASSIUM 4.1 mmol/L (3.5-4.5); SODIUM 136 mmol/L (135-145); TOTAL PROTEIN 6.8 g/dL (6.4-8.9); TRIGLYCERIDES 163 mg/dL; VLDL CHOLESTEROL 33 mg/dL
[2024-04-14 09:48] LABS: THYROID STIMULATING HORMONE 1.14 uIU/mL (0.34-5.60)
[2024-04-14 10:34] LABS: ESTIMATED AVERAGE GLUCOSE 91 mg/dL (70-100); HEMOGLOBIN A1c% 4.8 % (4.27-6.07)
[2024-04-15 05:09] LABS: ESTRADIOL 36.8 pg/mL (.); PROGESTERONE 0.4 ng/mL (.)
[2024-04-15 10:07] LABS: VITAMIN D 25-HYDROXY 10.8 ng/mL (30.0-100.0)
== END 2024-04-14 08:37 | disposition home or self-care (01) ==
LOC: LAB 08:36
PROVIDERS: ATTEND Nurse Practitioner
DX: F32.81 Premenstrual dysphoric disorder (principal); F41.1 Generalized anxiety disorder; Z79.899 Other long term (current) drug therapy; E55.9 Vitamin D deficiency, unspecified
CPT/HCPCS: 36415; 80053; 80061; 82306; 82670; 83036; 83721; 84144; 84403; 84443; 85025